=== PATIENT | female | born 1975 | race Caucasian/White ===

== ENCOUNTER 2021-01-12 14:23 | Emergency (ER) | payer BC, SELFPAY ==
--- NOTE | ~2021-01-12 | XR_ITS ---
XR wrist LT 2V 01/12/2021 15:30 Indication: Left wrist pain after fall Procedure: 2 views left wrist Comparison: No prior studies Findings: There is a comminuted distal radial fracture with dorsal displacement and approximately 40 degrees dorsal angulation. There is soft tissue swelling. No foreign bodies. No other fractures are i dentified. Impression: 1: Comminuted distal radial metaphyseal fracture with dorsal displacement and angulation. Reviewed, dictated and finalized at location B. MANAGEMENT Impression: 1: Comminuted distal radial metaphyseal fracture with dorsal displacement and a ngulation.
--- NOTE | ~2021-01-12 | XR_ITS ---
XR sacrum coccyx min 2V 01/12/2021 15:30 Indication: Status post fall. Sacral pain. Procedure: 3 views of the sacrum/coccyx Comparison: No prior studies for comparison. Findings: No fracture or traumatic malalignment. Sacral foramen are symmetric. Surrounding osseous st ructures within normal limits. No significant soft tissue abnormality. 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 Impression: 1: No acute fracture. Reviewed, dictated and finalized at location B. [employer] Impression: 1: No acute fracture.
--- NOTE | ~2021-01-12 | XR_ITS ---
EXAMINATION: XR wrist LT 2V INDICATION: Left distal radius fracture post reduction TECHNIQUE: Two views of the left wrist are obtained. COMPARISON: 1511 hours FINDINGS: Again seen is a comminuted transverse fracture of the distal radius. There are approximatel y 3 mm of lateral displacement of the largest distal fracture fragment. There are 15 degrees of dorsa l angulation at the fracture site. Soft tissue swelling surrounds the fracture a splint has been appl ied. No additional acute osseous findings are evident. IMPRESSION: 1. Partially reduced and splinted comminuted fracture of the distal radius. Reviewed, dictated and finalized at location A. SCHOOL ASSISTANT FOOTBALL COACH
[2021-01-12 14:43] VITALS: BP 87/53; PULSE 92; RESP 16; TEMP 36.2; O2SAT 100
--- NOTE | 2021-01-12 15:49 | ED.GENADULT ---
HPI - General Adult General Chief complaint: Fall <Mark Mora PA-C - Last Filed: 01/12/21 17:18> Stated complaint: fall/ribs/tailbone <Mark Mora PA-C - Last Filed: 01/12/21 17:18> Time Seen by Provider: 01/12/21 15:04 <Mark Mora PA-C - Last Filed: 01/12/21 17:18> Source: patient <Mark Mora PA-C - Last Filed: 01/12/21 17:18> Mode of arrival: ambulatory <Mark Mora PA-C - Last Filed: 01/12/21 17:18> Limitations: no limitations <Mark Mora PA-C - Last Filed: 01/12/21 17:18> History of Present Illness HPI narrative: Patient is a 45-year-old female who presents to emergency department for evaluation of wrist deformity injury that occurred just prior to arrival after slipping on the stairs patient presents with moderate aching pain to the left wrist with obvious deformity patient fell on an outstretched wrist patient also notes mild pain to the sacrum. Patient took ibuprofen but has not had anything else for symptoms denies head injury syncope loss of consciousness or other complaints. <Mark Mora PA-C - Last Filed: 01/12/21 17:18> Related Data Home medications: Home Medications Medication Instructions Recorded Confirmed No Home Medications 01/12/21 01/12/21 <Mark Mora PA-C - Last Filed: 01/12/21 17:18> Allergies/adverse reactions: Allergies Allergy/AdvReac Type Severity Reaction Status Date / Time No Known Allergies Allergy Verified 01/12/21 14:55 <Mark Mora PA-C - Last Filed: 01/12/21 17:18> Review of Systems Review of Systems: All systems reviewed & are unremarkable except as noted in HPI and below <Mark Mora PA-C - Last Filed: 01/12/21 17:18> [facility] Social History Social History: Social History (Updated 01/12/21 @ 15:50 by Mark Mora PA-C) Smoking status: Never smoker Gender identity (if verbalized by the patient): Female <Mark Mora PA-C - Last Filed: 01/12/21 17:18> Exam Narrative: Exam Narrative: GENERAL: Well-appearing, well-nourished, and in no acute distress. HEAD: Normocephalic, atraumatic. EYES: PERRLA and EOMI. ENT: Nares clear, no rhinorrhea or epistaxis. Mucous membranes moist. NECK: Supple. No adenopathy or masses. CHEST: Clear to auscultation. No respiratory distress. No wheezes rales or rhonchi HEART: Regular rate and rhythm. No murmur heard. Normal peripheral pulses. EXTREMITIES: Deformity and swelling and tenderness of the left wrist joint. Tenderness over the sacrum no cervical thoracic or lumbar tenderness. SKIN: Warm, dry, no rash. NEURO: No focal deficits. Alert and oriented x3. Neurovascularly intact. Capillary refill less than 2 seconds PSYCH: Normal mood and affect. <Mark Mora PA-C - Last Filed: 01/12/21 17:18> Course Course Emergency Course: Patient is a 45-year-old female who presented with wrist fracture which was reduced in the emergency department will be set up with orthopedic surgery patient hemodynamically stable no distress resting comfortably in the room <JOHN Wright Last Filed: 01/12/21 17:18> Consultations Consultation #1: Discussed case with orthopedist Dr. Suazo who will follow patient in clinic next week no prior <JOHN Wright Last Filed: 01/12/21 17:18> Date: 01/12/21 <JOHN Wright Last Filed: 01/12/21 17:18> Time: 17:17 <JOHN Wright Last Filed: 01/12/21 17:18> Vital Signs Vital signs: Vital Signs Temperature 97.2 F L 01/12/21 14:43 Pulse Rate 92 01/12/21 14:43 Respiratory Rate 16 01/12/21 14:43 Blood Pressure 87/53 L 01/12/21 14:43 Pulse Oximetry 100 01/12/21 14:43 Temperature 97.2 F L 01/12/21 14:43 Pulse Rate 92 01/12/21 14:43 Respiratory Rate 16 01/12/21 14:43 Blood Pressure 87/53 L 01/12/21 14:43 Pulse Oximetry 100 02/11/21 14:43 <Mark Mora PA-C - Last Filed:
[2021-01-12] MEDS: ONDANSETRON INJ 4 MG/2 ML VIAL IV PUSH (16:45)
[2021-01-12] MEDS: MORPHINE SULFATE (*CRX) 4 MG/ML INJ IV PUSH (16:45)
[2021-01-12] MEDS: HYDROmorphone HCL INJ (*CRX) 1 MG/ML SYR IV PUSH (16:45)
[2021-01-12 17:55] VITALS: BP 144/90; PULSE 84; RESP 17; O2SAT 97
== END 2021-01-12 17:56 | disposition home or self-care (01) ==
PROVIDERS: Emergency Provider Emergency Medicine; PCP Family Medicine
DX: S59.292A Other physeal fracture of lower end of radius, left arm, initial encounter for closed fracture (principal); S39.92XA Unspecified injury of lower back, initial encounter; W10.9XXA Fall (on) (from) unspecified stairs and steps, initial encounter
CPT/HCPCS: 25605; 72220; 73100; 96374; 96375; 99285; A4565; J1170; J2270; J2405

== ENCOUNTER → 2021-01-17 11:06 | Outpatient (CLI) | payer BC, SELFPAY ==
[2021-01-17 21:19] LABS: SARS-CoV-2 RNA PCR Positive
== END ==
PROVIDERS: PCP Family Medicine; Visit Provider Orthopaedic Surgery
DX: U07.1 COVID-19 (principal)
CPT/HCPCS: C9803; U0003; U0005

== ENCOUNTER 2021-01-19 01:17 | Day surgery (SDC) | payer BC, SELFPAY ==
[2021-01-17 12:43] VITALS: BMI 28.3
--- NOTE | 2021-01-18 09:15 | WPDANESEPPF ---
Anes - Initial Pre Proc Eval Procedure: Operation Date: 01/19/21 12:00 Proposed Procedures p Open Reduction Internal Fixation Left Distal Radius - Layo Suazo MD <Shadi Rios DO - Last Filed: 01/18/21 09:16> Date/Time: 01/18/21 09:15 <Shadi Rios DO - Last Filed: 01/18/21 09:16> Surgeon: Layo Suazo MD <Shadi Rios, DO - Last Filed: 01/18/21 09:16> Pre Op Diagnosis: left distal radius fx <Shadi Rios DO - Last Filed: 01/18/21 09:16> Patient Data Age: 45 Gender: F Height: 1.63 m Weight: 75 kg <Shadi Rios DO - Last Filed: 01/18/21 09:16> Allergies Allergy/AdvReac Type Severity Reaction Status Date / Time No Known Allergies Allergy Verified 01/19/21 10:34 <Shadi Rios DO - Last Filed: 01/18/21 09:16> Home Medications Medication Instructions Recorded Confirmed Type hydrocodone-acetaminophen 1 tablet PO Q6H PRN 3 Days #12 01/12/21 01/19/21 Rx tablet acetaminophen 650 mg 650 mg PO Q12H 01/17/21 01/19/21 History tablet,extended release ibuprofen 200 mg capsule 200 mg PO Q6H PRN 01/17/21 01/19/21 History <Shadi Rios DO - Last Filed: 01/18/21 09:16> Patient hx anesthesia problems: none <Dg Alberto MD - Last Filed: 01/19/21 10:58> Family hx anesthesia problems: none <Dg Alberto MD - Last Filed: 01/19/21 10:58> [facility] Past Medical History Medical History: Medical History Headache Overweight Smoker <Shadi Rios DO - Last Filed: 01/18/21 09:16> Surgical History Surgical History: Surgical History (Updated 01/19/21 @ 10:58 by Dg Alberto MD) History of reversal of tubal ligation History of tubal ligation <Shadi Rios DO - Last Filed: 01/18/21 09:16> Family History Family History: Family History Other Asthma Cerebrovascular accident Depression Diabetes mellitus <Shadi Rios DO - Last Filed: 01/18/21 09:16> Social History Social History: Social History Smoking status: Current every day smoker ( Vapes) Tobacco type: cigarettes and e-cigarettes/vaping Second hand tobacco smoke exposure: Yes Additional smoking assessment comments: STATES HX CIGARETTS 1PK/DAY/10YRS NOW JUST USES E-CIGARETTS/VAPING Alcohol intake: never Substance use: never Substance use type: does not use Living arrangements: with family Additional living arrangements comments: LIVES WITH 3 CHILDREN Additional occupation/education comments: [employer] Gender identity (if verbalized by the patient): Female Spiritual care concerns: No <Shadi Rios DO - Last Filed: 01/18/21 09:16> Anes - Eval Final PreProcedure Day of Procedure 01/18/21 09:15 <Shadi Rios DO - Last Filed: 01/18/21 09:16> Patient weight: overweight <Shadi Rios DO - Last Filed: 01/18/21 09:16> overweight <Dg Alberto MD - Last Filed: 01/19/21 10:58> Heart: regular rate and rhythm <Shadi Rios DO - Last Filed: 01/18/21 09:16> regular rate and rhythm <Dg Alberto MD - Last Filed: 01/19/21 10:58> Lungs: clear to auscultation and normal air movement <Shadi Rios DO - Last Filed: 01/18/21 09:16> clear to auscultation <Dg Alberto MD - Last Filed: 01/19/21 10:58> Airway: Mallampati scale class II <Shadi Rios DO - Last Filed: 01/18/21 09:16> Mallampati scale class II <Dg Alberto MD - Last Filed: 01/19/21 10:58> Neurological: alert and oriented <Shadi Rios DO - Last Filed: 01/18/21 09:16> alert and oriented <Dg Alberto MD - Last Filed: 01/19/21 10:58> Last oral intake: >/= 8 hours <Shadi Rios DO - Last Filed: 01/18/21 09:16>
--- NOTE | 2021-01-18 09:17 | WPDANESPNB ---
Anes - Peripheral Nerve Block Date/Time: 01/18/21 09:17 <Shadi Rios DO - Last Filed: 01/18/21 09:18> I have discussed with the patient/family/POA the placement of a peripheral nerve block for post-operative pain management, including associated risks, benefits, complications, and side effects. Alternative methods of post-operative analgesia were detailed. Questions were solicited and answers provided to the satisfaction of the patient/family/POA. <Shadi Rios DO - Last Filed: 01/18/21 09:18> Time-Out: A pre-procedural Time-Out was completed immediately before starting the procedure and confirmed: Patient Identification, Site, Procedure, Patient Position and the Availability of Requisite Equipment. <Shadi Rios DO - Last Filed: 01/18/21 09:18> Clinical Indications: Acute post-operative pain management requested by the operative surgeon. <Shadi Rios - Last Filed: 01/18/21 09:18> Nerve Block Insertion Note Anes-nerve block: supraclavicular left <Shadi Rios - Last Filed: 01/18/21 09:18> Patient position: supine <Shadi Rios DO - Last Filed: 01/18/21 09:18> Skin prep: chlorhexidine <Shadi Rios DO - Last Filed: 01/18/21 09:18> Needle: 22 gauge, stimulating, insulated echogenic needle. <Shadi Rios DO - Last Filed: 01/18/21 09:18> Needle length: 50 mm <Shadi Rios DO - Last Filed: 01/18/21 09:18> Technique: ultrasound <Shadi Rios DO - Last Filed: 01/18/21 09:18> Injectate: bupivacaine 0.5% with epi 5 mcg/ml (30cc- no epi) <Shadi Rios DO - Last Filed: 01/18/21 09:18> Observations: tolerated well <Shadi Rios DO - Last Filed: 01/18/21 09:18> Complications: none <Shadi Rios, DO - Last Filed: 01/18/21 09:18>
[2021-01-19] VITALS (8 sets, daily range): BP systolic 117–129; BP diastolic 67–78; PULSE 67–82; RESP 14–18; TEMP 36.1–36.7; O2SAT 93–98; BMI 27.9
--- NOTE | ~2021-01-19 | XR_ITS ---
EXAMINATION: XR surgery orthopedic DATE: 01/19/2021 14:02 INDICATION: ORIF left wrist fracture TECHNIQUE: Frontal and lateral fluoroscopic images of the left wrist were obtained during procedure p erformed by Dr. Suazo. Radiologist was not present for the imaging or procedure. The amount of fluoros copy time used during this procedure was 0.5 minutes. COMPARISON: 01/12/2021 FINDINGS: Interval reduction to near anatomic alignment of the prior dorsal/radial displacement and angulation of a mildly comminuted extra articular fracture of the distal left radius. There is 1-2 cortical widt hs residual radial displacement. Fracture is fixed with a volar T plate and screws. No other fracture s identified. Normal alignment and joint spaces in the visualized left carpus. IMPRESSION: 1. Near-anatomic alignment post open reduction internal fixation of a comminuted extra articular dist al left radial fracture. Reviewed, dictated and finalized at location A. BACKER IMPRESSION: 1. Near-anatomic alignment post open reduction internal fixation of a comminute d extra articular distal left radial fracture.
[2021-01-19] MEDS: LACTATED RINGERS 1,000 ML 30 ML IV CONT ×2 (11:02→13:32)
[2021-01-19] MEDS: KETOROLAC 15 MG/ML VIAL (*BKC) IV PUSH (11:03)
[2021-01-19] MEDS: ACETAMINOPHEN 500 MG TABLET 1000 MG PO (11:03)
--- NOTE | 2021-01-19 11:42 | WPDHPUPDATE1 ---
History and Physical Update Update Date/Time: 01/19/21 11:42 History and Physical has been reviewed, including an updated exam of the patient. There are NO changes in the patient's condition. Risks, benefits, and alternatives have been discussed and questions answered. Patient agrees to proceed with procedure.
--- NOTE | 2021-01-19 11:46 | SUR.PREOP ---
1140; SPOKE TO DR SYLVESTER. NO SHAVE NEEDED TODAY. SPLINT LEFT ON.
[2021-01-19] MEDS: ceFAZolin 2 GM/D5W 50 ML 2 GM/50 ML BAG IVPB (12:00)
--- NOTE | 2021-01-19 14:11 | P.OP_ITS ---
Procedure Note - Detailed Date of procedure: 01/19/21 Pre-op diagnosis: left distal radius fx Post-op diagnosis: same Procedure performed: ORIF left distal radius fracture Description of procedure: The patient was identified and the proper side identified. In the preop holding area, the anesthesia team performed a left upper extremity block. she was taken back to the operating room, transferred to the or table positioning supine taking care to pad her torso and extremities. After general anesthetic induction and intubation, a nonsterile tourniquet was placed high on the left arm which was prepped and draped in the usual sterile fashion. The extremity was exsanguinated and tourniquet inflated to 250 mmHg remaining up for approximately 57 minutes. A volar longitudinal incision was made along the FCR tendon distally. The subcutaneous tissue was sharply dissected protecting neurovascular structures. The FCR tendon was released from its sheath and retracted ulnarly. This allowed for the deep fascia of the forearm to be divided longitudinally in line with the incision. Care was taken to protect the volar compartment structures as well as the radial nerve and radial vascular structures. The pronator quadratus was elevated off of the distal radius allowing for inspection of the fracture site. The fracture fragments were disimpacted and able to be realigned virtually anatomically with fluoroscopic assistance. They were secured in this position with a wide short left volar plate from the DVR set. The plate was applied with fluoroscopic visualization to avoid penetration of the joint and to ensure optimal hardware placement. Once the plate was secure the overall construct was assessed fluoroscopically on the AP and lateral views. The virtually anatomic reduction was held very nicely. The construct was stable. The wound was irrigated with a copious amount of sterile antibiotic solution. Skin edges were reapproximated with two 0 strata fix and tissue adhesive. Sterile dressing was applied. To urniquet was released. A well-padded short-arm volar wrist splint was fashioned. The procedure was well tolerated. There were no known intraoperative complications. Estimated blood loss was negligible. Anesthesia: GLMA and regional Surgeon: Layo Suazo MD Teleprinter Installer: Manju Parra Estimated blood loss (mL): 2 Tourniquet time (min): 57 Drains: No Packing: No Pathology: none sent Complications: No immediate complications Condition: stable Disposition: PACU
== END 2021-01-19 15:24 | disposition home or self-care (01) ==
PROVIDERS: PCP Family Medicine; Visit Provider Orthopaedic Surgery
PROC: (CPT 25575; principal; 2021-01-19 12:00)
DX: S52.552A Other extraarticular fracture of lower end of left radius, initial encounter for closed fracture (principal); G89.18 Other acute postprocedural pain; F17.290 Nicotine dependence, other tobacco product, uncomplicated; W01.0XXA Fall on same level from slipping, tripping and stumbling without subsequent striking against object, initial encounter
CPT/HCPCS: 25607; 64415; A9270; C1713; J0690; J1100; J1885; J2250; J2405; J2704; J3010; J7120

== ENCOUNTER 2021-04-19 10:00 | Outpatient (RCR) | payer BC, SELFPAY ==
--- NOTE | 2021-02-22 11:36 | OTOPEVAL ---
OCCUPATIONAL THERAPY INITIAL EVALUATION REPORT 02/22/21 Natalie has been instructed in active ROM exercise for the forearm, wrist, and hand. She demonstrates good understanding. Plan to only see patient 1x/week for 4 weeks initially, then progress to increased frequency when cleared for passive ROM and resistive strengthening. Thank you for referring Natalie Prasad to [facility].? The patient is scheduled to be seen for therapy? 1x/week for 4 weeks. Please review, sign, date and return this plan of care JINNY. I agree with and certify that the following plan of care is medically necessary. Referring Physician Date Referring Provider: Layo Suazo MD *OT Outpatient Evaluation Therapy Assessment Status Assessment Status Assessment Status Evaluation Outpatient Past Medical History Past Medical History Source of Past Medical History Recalled from Previous Visit, Confirmed with Patient/Family Neurological History Hx Neurological Disorders No Significant History Cardiovascular History Hx Cardiac Disorders No Significant History Respiratory History Hx Respiratory Disorders No Significant History Gastrointestinal History Hx Gastrointestinal Disorders No Significant History Genitourinary History Hx Genitourinary Disorders No Significant History Musculoskeletal History Hx Fractures Yes: CURRENTLY LT WRIST Hematological History Hx Hematological Disorders No Significant History Endocrine History Hx Endocrine Disorders No Significant History HEENT History Hx Other HEENT Disorders Yes: GLASSES @ NOC Integumentary History Hx Skin Disorders No Significant History Reproductive History Hx Tubal Ligation Yes: 2004 & REVERSAL 2014 Hx Other Reproductive Disorders Yes: LMP 01/09/21 Psychosocial History Hx Psychiatric Disorders No Significant History Pain History Has Past Pain Affected Your Daily Life Yes: FX LT WRIST Anesthesia History Hx Anesthesia Reactions No Significant History Other History Hx Other Medical Conditions Yes: STATES HAD COVID IN DECEMBER 2020 - [place], LOSS OF TASTE & SMELL Evaluation Information Problem Diagnosis Left distal radius fracture Additional Evaluation Detail ORIF 01/19/21 Subjective Information Patient fell and broke her Query Text:As Reported By Patient/ left wrist and underwent an Family ORIF ~5 weeks ago. She presents today wearing a prefabricated wrist cock up brace that she wears the brace when sleeping, driving, and doing housework. She removes the splint when she's at home and resting. Prior Level of Function Activity Level (Last 3 Months) Occupation [employer]
--- NOTE | 2021-02-28 10:26 | PCOTNOTE ---
Patient did not show up for scheduled appointment this date. Called patient and was unable to leave a message as her voicemail box was not set up.
--- NOTE | 2021-03-22 09:43 | OTOPEVAL ---
OCCUPATIONAL THERAPY RE-EVALUATION REPORT Thank you for referring Natalie Prasad to [facility].? The patient is scheduled to be seen for continued therapy? 1x/week for 4 weeks. Please review, sign, date and return this plan of care JINNY. I agree with and certify that the following plan of care is medically necessary. Referring Physician Date Referring Provider: Layo Suazo MD *OT Outpatient Evaluation Start: 02/22/21 10:36 Evaluation Information Problem Diagnosis Left distal radius fracture Additional Evaluation Detail ORIF 01/19/21 Patient has attended 3 OT sessions since 02/22/21. Subjective Information Patient states she has noticed Query Text:As Reported By Patient/ improved mobility and Family strength of the left wrist since start of care. 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 She reports residual weakness that limits her functional return to heavier lifting and returning to work. Pain Assessment Timing of Pain Assessment Timing of Pain Assessment Re-assessment Pain Scale Pain Scale Used Numeric (1 - 10) Self Report Pain Assessment Left Wrist(s) Reported Pain Level 0 Lowest Pain Intensity 0 Greatest Pain Intensity 0 Pain Score Pain Score 0: Self Report Additional Pain Score Comments No pain, just stiffness per patient report. Upper Extremity Range of Motion Elbow/Forearm Range of Motion Left Forearm Supination - Active 80 Forearm Pronation - Active 80 Elbow/Forearm Range of Motion Comments Elbow flexion/extension are WNL. Forearm rotation is symmetrical to right UE. Improved from 40* supination and 70* pronation. Wrist Range of Motion Left Wrist Flexion - Active 55 Wrist Extension - Active 55 Wrist Radial Deviation - Active 25 Wrist Ulnar Deviation - Active 33 Wrist Range of Motion Comments Active flexion improved from 50* Active extension improved from 30* Active RD improved from 20* Active UD improved from 20* Finger Range of Motion Left Reason Not Measured WNL/Left Thumb Range of Motion Left Reason Not Measured WNL/Left Hand Milk Pickup Driver/Pinch Strength Assessment Hand Right Milk Pickup Driver Strength (lbs)
--- NOTE | 2021-04-19 10:33 | OTOPEVAL ---
OCCUPATIONAL THERAPY RE-EVALUATION AND D/C SUMMARY 04/19/21 Patient presents today for final re-evaluation after 8 weeks of therapy. OT has focused on ROM and strengthening in prep for return to normal functional use of the left UE for ADLs, household tasks, and return to work. At this time the patient has improved to normal limits and is ready for discharge. No further skilled OT indicated. Thank you for referring Natalie Prasad to [facility]. Please review, sign, date and return this D/C Note JINNY. I agree with and certify that the following plan of care is medically necessary. Referring Physician Date Referring Provider: Layo Suazo MD *OT Outpatient Re-Evaluation Evaluation Information Problem Diagnosis Left distal radius fracture Additional Evaluation Detail ORIF 01/19/21 Patient has attended 7 OT sessions since 02/22/21. Subjective Information Patient states her wrist ROM Query Text:As Reported By Patient/ and strength are back to Family normal. She has no difficulties with lifting grocery bags or a laundry basket. Today she was able to lift 50# and carry 10 ft. without difficulty. Pain Assessment Timing of Pain Assessment Timing of Pain Assessment Re-assessment Self Report Self Report Pain Level 0 Pain Score Pain Score 0: Self Report Upper Extremity Range of Motion Elbow/Forearm Range of Motion Left Forearm Supination - Active 85 Forearm Pronation - Active 85 Elbow/Forearm Range of Motion Comments Elbow flexion/extension are WNL. Improved from 40* supination and 70* pronation. Wrist Range of Motion Left Wrist Flexion - Active 60 Wrist Extension - Active 55 Wrist Radial Deviation - Active 25 Wrist Ulnar Deviation - Active 35 Wrist Range of Motion Comments Active flexion improved from 50* Active extension improved from 30* Active RD improved from 20* Active UD improved from 20* Finger Range of Motion Left Reason Not Measured WNL/Left Thumb Range of Motion Left Reason Not Measured WNL/Left Upper Extremity Muscle Strength Testing Elbow/Forearm Bilateral Elbow Flexion Strength 5 Normal Elbow Extension Strength 5 Normal Forearm Pronation Strength 5 Normal Forearm Supination Strength 5 Normal Wrist Strength Bilateral Wrist Flexion Strength 5 Normal Wrist Extension Strength 5 Normal Hand Strategic Planner/Pinch Strength Assessment Hand Right Strategic Planner Strength (lbs) 73.33 Left Strategic Planner Strength (lbs)
== END 2021-04-19 11:12 | disposition home or self-care (01) ==
LOC: ANHOT 10:00
PROVIDERS: PCP Family Medicine; Visit Provider Orthopaedic Surgery
DX: Z47.89 Encounter for other orthopedic aftercare (principal); S52.552D Other extraarticular fracture of lower end of left radius, subsequent encounter for closed fracture with routine healing
CPT/HCPCS: 97018; 97110; 97165

== ENCOUNTER 2021-05-13 03:51 | Emergency (ER) | payer BC, SELFPAY ==
[2021-05-13 03:56] VITALS: BP 133/83; PULSE 78; RESP 18; TEMP 36.2; O2SAT 98
--- NOTE | 2021-05-13 04:15 | ED.GENADULT ---
HPI - General Adult General Chief complaint: Ear Stated complaint: Bilateral ear pain Time Seen by Provider: 05/13/21 03:59 History of Present Illness HPI narrative: Patient 46-year-old female who presents to the emergency department with chief complaint of bilateral ear pressure. Patient states that she has decreased hearing out of the left ear reports she has had pressure in her ears patient denies fever denies sore throat Related Data Home Medications Medication Instructions Recorded Confirmed acetaminophen 650 mg 650 mg PO Q12H 01/17/21 04/27/21 tablet,extended release ibuprofen 200 mg capsule 200 mg PO Q6H PRN 01/17/21 04/27/21 Allergies Allergy/AdvReac Type Severity Reaction Status Date / Time No Known Allergies Allergy Verified 05/13/21 04:02 Review of Systems Review of Systems: Narrative: A 10 system review of systems was completed on the patient and is negative except for what is stated in the HPI. Nursing and ancillary documentation was reviewed. PMFSH Past Medical History Medical History Headache Overweight Smoker Surgical History Surgical History Closed extra-articular fracture of distal end of left radius ORIF January 2020 History of reversal of tubal ligation History of tubal ligation Family History Family History Other Asthma Cerebrovascular accident Depression Diabetes mellitus Social History Social History Smoking status: Current every day smoker ( Vapor) Tobacco type: cigarettes and e-cigarettes/vaping Second hand tobacco smoke exposure: Yes Additional smoking assessment comments: STATES HX CIGARETTS 1PK/DAY/10YRS NOW JUST USES E-CIGARETTS/VAPING Alcohol intake: never Substance use: never Substance use type: does not use Additional living arrangements comments: LIVES WITH 3 CHILDREN Additional occupation/education comments: [employer] Gender identity (if verbalized by the patient): Female Spiritual care concerns: No Exam Narrative: Exam Narrative: GENERAL: Well-appearing, well-nourished, and in no acute distress. HEAD: Normocephalic, atraumatic. EYES: PERRLA and EOMI. ENT: Nares clear, no rhinorrhea or epistaxis. Mucous membranes moist. There is erythema of the left tympanic membrane that was initially a cerumen impaction NECK: Supple. CHEST: Clear to auscultation. No respiratory distress. HEART: Regular rate and rhythm. No murmur heard. Normal peripheral pulses. ABDOMEN: Soft, nontender, nondistended, normal active bowel sounds. EXTREMITIES: Normal range of motion. No edema. SKIN: Warm, dry, no rash. NEURO: No focal deficits. Alert and oriented x3. PSYCH: Normal mood and affect. Course Course Emergency Course: The left ear was irrigated and a cerumen plug was removed. The right ear was irrigated as well with a small amount of cerumen removed Vital Signs Vital signs: Vital Signs Temperature 36.2 C L 05/13/21 03:56 Pulse Rate 78 05/13/21 03:56 Respiratory Rate 18 05/13/21 03:56 Blood Pressure 133/83 05/13/21 03:56 Pulse Oximetry 98 05/13/21 03:56 Temperature 36.2 C L 05/13/21 03:56 Pulse Rate 78 05/13/21 03:56 Respiratory Rate 18 05/13/21 03:56 Blood Pressure 133/83 05/13/21 03:56 Pulse Oximetry 98 05/13/21 03:56 Medical Decision Making Vital Signs Vital Signs: Vital Signs Temperature 36.2 C L 05/13/21 03:56 Pulse Rate 78 05/13/21 03:56 Respiratory Rate 18 05/13/21 03:56 Blood Pressure 133/83 05/13/21 03:56 Pulse Oximetry 98 05/13/21 03:56 Temperature 36.2 C L 05/13/21 03:56 Pulse Rate 78 05/13/21 03:56 Respiratory Rate 18 05/13/21 03:56 Blood Pressure 133/83 05/13/21 03:56 Pulse Oximetry 98 05/13/21 03:56 Discharge Plan Discharge Clinical Impression: Tomasz
[2021-05-13] MEDS: AMOXICILLIN/CLAVULANATE K 875-125 MG TAB 1 TABLET PO (04:38)
[2021-05-13 04:53] VITALS: BP 127/89; PULSE 74; RESP 14; O2SAT 98
== END 2021-05-13 04:52 | disposition home or self-care (01) ==
PROVIDERS: Emergency Provider Emergency Medicine; PCP Family Medicine
DX: H66.93 Otitis media, unspecified, bilateral (principal); H61.23 Impacted cerumen, bilateral; F17.290 Nicotine dependence, other tobacco product, uncomplicated; E66.3 Overweight; Z68.29 Body mass index [BMI] 29.0-29.9, adult
CPT/HCPCS: 69209; 99283; A9270

== ENCOUNTER 2022-04-21 19:05 | Emergency (ER) | payer BC, SELFPAY ==
[2022-04-21 19:12] VITALS: BP 137/91; PULSE 80; RESP 16; TEMP 37.2; O2SAT 99
--- NOTE | 2022-04-21 19:12 | ED.EAR ---
HPI - Ear Problem General Chief complaint: Ear Stated complaint: ear pain Time Seen by Provider: 04/21/22 19:12 Source: patient, RN notes reviewed and old records reviewed Mode of arrival: ambulatory Limitations: no limitations History of Present Illness HPI Narrative: 47-year-old female presents to the [facility] with complaints of bilateral ear pain, right worse than left. Has had allergies for 2 days. Took 1 Zyrtec and states it was not helping. Denies any fevers, chest pain, abdominal pain. No nausea vomiting or diarrhea. Reports decreased hearing MD Complaint: ear pain Location: bilateral Related Data Home Medications Medication Instructions Recorded Confirmed No Home Medications 04/21/22 04/21/22 Allergies Allergy/AdvReac Type Severity Reaction Status Date / Time No Known Allergies Allergy Verified 05/13/21 04:02 Review of Systems Review of Systems: All systems reviewed & are unremarkable except as noted in HPI and below Constitutional: Constitutional: Reports no additional constitutional complaints, Denies chills and Denies fever(s) Eyes: Eyes: Reports no additional eye complaints ENT: Reports as per HPI, Denies change in voice, Denies dental pain, Denies vertigo, Denies dizziness and Denies throat swelling Comments: Ear pain bilateral with decreased hearing Cardiovascular: Cardiovascular: Reports no additional cardiovascular complaints, Denies chest pain and Denies dyspnea Respiratory: Respiratory: Reports no additional respiratory complaints, Denies cough and Denies dyspnea Gastrointestinal: Gastrointestinal: Reports no additional gastrointestinal complaints, Denies abdominal pain, Denies nausea and Denies vomiting Musculoskeletal: Musculoskeletal: Reports no additional musculoskeletal complaints Integumentary/Breasts: Skin/Breast: Reports system reviewed and no additional complaints, except as docu Neurologic: Reports system reviewed and no additional complaints, except as documented, Denies vertigo and Denies dizziness Psychiatric: Psychiatric: Reports no additional psychiatric complaints Allergic/Immunologic: Allergic/Immunologic: Reports no additional allergic/immunologic complaints and Denies throat swelling PMFSH Past Medical History Medical History Headache Overweight Smoker Surgical History Surgical History Closed extra-articular fracture of distal end of left radius ORIF January 2020 History of reversal of tubal ligation History of tubal ligation Family History Family History Other Asthma Cerebrovascular accident Depression Diabetes mellitus Social History Social History Smoking status: Current every day smoker ( Vapor) Tobacco type: cigarettes and e-cigarettes/vaping Second hand tobacco smoke exposure: Yes Additional smoking assessment comments: STATES HX CIGARETTS 1PK/DAY/10YRS NOW JUST USES E-CIGARETTS/VAPING Alcohol intake: never Substance use: never Substance use type: does not use Additional living arrangements comments: LIVES WITH 3 CHILDREN Additional occupation/education comments: [employer] Gender identity (if verbalized by the patient): Female Spiritual care concerns: No Comments At the time of my signature, I reviewed and agree with the nursing past medical, surgical, social, and family history. There is no relevant family history pertinent to the patient complaint. Exam Const: General: healthy appearing, no acute distress and alert Nutritional Appearance: well nourished and obese Orientation/consciousness: patient oriented x3 Limitations: no limitations HENMT: Head: normal to inspection Ears: external ears normal, Abnormal EAC present excessive cerumen bilateral and TM abnormal with fluid behind the TM bilateral; not erythematous General nose exam: No
== END 2022-04-21 19:23 | disposition home or self-care (01) ==
PROVIDERS: Emergency Provider Nurse Practitioner
DX: H65.03 Acute serous otitis media, bilateral (principal); H61.23 Impacted cerumen, bilateral; F17.290 Nicotine dependence, other tobacco product, uncomplicated
CPT/HCPCS: 69210; 99212; G0463

== ENCOUNTER 2022-07-16 17:18 | Inpatient (IN) | payer BC, SELFPAY ==
[2022-07-16] VITALS (21 sets, daily range): BP systolic 111–149; BP diastolic 71–95; PULSE 50–70; RESP 16–18; TEMP 36.3–36.4; O2SAT 96–100; BMI 30.1
--- NOTE | ~2022-07-16 | XR_ITS ---
EXAMINATION: XR ERCP DATE: 07/18/2022 12:01 INDICATION: Gallstones TECHNIQUE: A single spot fluoroscopic image of the right upper quadrant were obtained during endoscop ic retrograde cholangiopancreatography (ERCP) performed by Dr. Matti Rojas. Radiologist was not p resent for the imaging or procedure. The amount of fluoroscopy time used during this procedure was 1. 4 minutes. COMPARISON: None. FINDINGS/IMPRESSION: Single unremarkable fluoroscopic image of the right upper quadrant. Please refer to the ERCP procedur e note for additional details. Reviewed, dictated and finalized at location A.
--- NOTE | ~2022-07-16 | MR_ITS ---
EXAMINATION: MR MRCP wo/w con/w 3D wo ind DATE: 07/17/2022 12:58 INDICATION: Biliary dilatation TECHNIQUE: Magnetic resonance imaging (MRI) of the abdomen was performed without and with intravenous contrast. Sequences included coronal T2-weighted SS-FSE ARC, coronal T2-weighted FS SS-FSE, coronal T2-weighted 2D FS FIESTA, Water:Coronal LAVA-Flex, sagittal T2-weighted SS-FSE ARC, axial SSFSE ARC, axial 3D DualEcho, axial DWI B=600, axial T1-weighted LAVA, FAT:Coronal LAVA-Flex, and coronal in and opposed phase LAVA-Flex. Thick-slab T2-weighted FRFSE-XL images were obtained for magnetic resonance cholangiopancreatography (MRCP). Maximum intensity projection 3-D reconstructions of the volumetric data were created by the technologist. Postcontrast sequences included a time course of axial T1-weig hted LAVA, FAT:Coronal LAVA-Flex, coronal in and opposed phase LAVA-Flex, and Water:Coronal LAVA-Flex . COMPARISON: CT from yesterday CONTRAST: Multihance, 15 cc FINDINGS: ABDOMEN MRI: The liver, spleen, pancreas, adrenal glands, and kidneys are normal. The gallbladder is distended and contains multiple stones. No definite gallbladder wall thickening or pericholecystic fl uid are identified. There are no pathologically enlarged abdominal lymph nodes. There are no dilated loops of bowel. No abnormal enhancement is present after contrast administration. ABDOMEN MRCP: The MRCP sequences slightly limited by motion artifact. The mildly dilated common bile duct measures up to 7 mm. There appears to be a 2 mm stone in the distal common bile duct. The pancre atic duct is normal in course and caliber. IMPRESSION: 1. 2 mm stone of the distal common bile duct with mild dilation common bile duct. 2. Distended gallbladder containing multiple stones. Reviewed, dictated and finalized at location A. IMPRESSION: 1. 2 mm stone of the distal common bile duct with mild dilation common bile lavern t. 2. Distended gallbladder containing multiple stones.
--- NOTE | ~2022-07-16 | CT_ITS ---
EXAMINATION: CT abdomen pelvis w con DATE: 07/16/2022 20:05 INDICATION: Right upper quadrant abdominal pain. Epigastric abdominal pain. Transaminitis. TECHNIQUE: Computed tomography (CT) of the abdomen and pelvis was performed with 100 mL Omnipaque 350 intravenous contrast. Automated exposure control and iterative reconstruction technique were employe d. The dose-length product was 590.01 mGy-cm. COMPARISON: None. FINDINGS: The visualized portions of the lung bases demonstrate mild atelectasis. There is a trace ri ght pleural effusion. The heart size is normal. No pericardial effusion. There is mild intrahepatic b iliary duct dilatation. The common duct measures 7 mm. The gallbladder is distended and contains gall stones. The spleen, pancreas, adrenal glands, and kidneys are normal. There are no dilated loops of b owel. The appendix is normal. There are no pathologically enlarged lymph nodes. There is no free intr aperitoneal fluid. There is mild thoracolumbar spondylosis. IMPRESSION: 1. Mild intrahepatic and extrahepatic biliary duct dilatation. Consider MRCP. 2. Distended gallbladder with gallstones. Reviewed, dictated and finalized at location A.
[2022-07-16 18:00] LABS: Basophils Percent Auto 0.8 % (0.2-1.2); Eosinophils Absolute Auto 0.1 K/mm3 (0-0.3); Hematocrit 41.7 % (37.0-47.0); Immature Granulocyte Absolute 0.01 K/mm3 (0.00-0.031); Immature Granulocyte Percent A 0.2 % (0-0.5); Lymphocytes Percent Auto 20.5 % (18.3-44.2); Mean Corpuscular HGB Conc 33.6 g/dl (32-36); Mean Corpuscular Hemoglobin 28.5 pg (26-34); Mean Corpuscular Volume 84.9 fl (80-100); Mean Platelet Volume 9.3 fl (7.4-10.4); Monocytes Absolute Auto 0.4 K/mm3 (0.1-0.6); Monocytes Percent Auto 7.8 % (2.6-8.5); Neutrophils Absolute Auto 3.4 K/mm3 (1.3-6.7); Neutrophils Percent Auto 69.7 % (45.5-73.1); Platelet Count Result 350 k/mm3 (150-375); Red Blood Count 4.91 M/mm3 (4.2-5.4); Red Cell Distribution Width 13.3 % (11.5-14.5); White Blood Count 4.9 K/mm3 (4.5-10.0)
[2022-07-16 18:07] LABS: Appearance Urine Clear (Clear); Bilirubin Urine 3+ (Negative); Color Urine Yellow (Yellow); Glucose Urine UA Trace mg/dL (Negative); Ketones Urine 1+ mg/dL (Negative); Leukocyte Esterase Ur Negative LEU/UL (Negative); Nitrate Urine Negative (Negative); Protein Urine 1+ mg/dL (Negative); Urobilinogen Urine >=8.0 mg/dL (<2.0)
[2022-07-16 18:13] LABS: Albumin Level 4.7 g/dL (3.5-5.1); Alkaline Phosphatase 241 U/L (38-126); Anion Gap 10 mmol/L (8-16); Bilirubin,Total 3.7 mg/dL (0.2-1.3); Blood Urea Nitrogen 11 mg/dL (7-17); Calcium 9.2 mg/dL (8.4-10.2); Carbon Dioxide 26 mmol/L (22-30); Chloride 104 mmol/L (98-107); Estimated CRCL calculation 102 ml/min; Estimated Glomerular Filt Rate > 60; Glucose 117 mg/dL (65-110); Lipase 79 U/L (23-300); Sodium 140 mmol/L (137-145)
[2022-07-16 18:16] LABS: Mucus Urine Rare /lpf; Squamous Epithelial Cell Urine Few /hpf (Few); WBC Urine 0-3 /hpf
[2022-07-16 18:19] LABS: Add Urine Microscopic? YES; Blood Urine Trace-Intact (Negative)
[2022-07-16 18:37] LABS: Alanine Aminotransferase 953 U/L (6-35)
--- NOTE | 2022-07-16 19:13 | ED.ABDPAIN ---
HPI - Abdominal Pain General Chief Complaint: Abdominal Pain Stated Complaint: stomach and back pain, urine has changed colors Time Seen by Provider: 07/16/22 18:42 Source: patient Mode of arrival: ambulatory Limitations: no limitations History of Present Illness HPI narrative: Patient is a 47-year-old female who presents the ED with report of epigastric abdominal pain. Patient reports she ate [employer] on Saturday night and developed pain in her epigastric/right upper quadrant abdomen afterwards, accompanied with nausea and vomiting. Since then, she has had pain and nausea/vomiting after trying to eat anything. States pain radiates through to back. Has been able to keep down water. Denies any fever, diarrhea, constipation, dysuria, hematuria, CP, SOB. Related Data Home Medications Medication Instructions Recorded Confirmed No Home Medications 04/21/22 04/21/22 Allergies Allergy/AdvReac Type Severity Reaction Status Date / Time No Known Allergies Allergy Verified 07/16/22 20:03 Review of Systems Review of Systems: CONSTITUTIONAL: Denies fever, chills, or sweats. CARDIOVASCULAR: Denies chest pain. RESPIRATORY: Denies dyspnea. GASTROINTESTINAL: Reports epigastric/RUQ pain, N/V. Denies diarrhea, constipation, rectal bleeding. GENITOURINARY: Denies dysuria or hematuria. MUSCULOSKELETAL: Reports mid back pain. All systems reviewed & are unremarkable except as noted in HPI and below PMFSH Past Medical History Medical History Headache Overweight Smoker Surgical History Surgical History Closed extra-articular fracture of distal end of left radius ORIF January 2020 History of reversal of tubal ligation History of tubal ligation Family History Family History Other Asthma Cerebrovascular accident Depression Diabetes mellitus Social History Social History Smoking status: Current every day smoker ( Vapor) Tobacco type: cigarettes and e-cigarettes/vaping Second hand tobacco smoke exposure: Yes Additional smoking assessment comments: STATES HX CIGARETTS 1PK/DAY/10YRS NOW JUST USES E-CIGARETTS/VAPING Alcohol intake: never Substance use: never Substance use type: does not use Additional living arrangements comments: LIVES WITH 3 CHILDREN Additional occupation/education comments: [employer] Gender identity (if verbalized by the patient): Female Spiritual care concerns: No Exam Narrative: GENERAL: Well appearing, well-nourished, non-toxic, in no acute distress. HEAD: Normocephalic, atraumatic. NECK: Supple. No adenopathy, no masses. RESPIRATORY: Airway patent, respirations nonlabored. Clear to auscultation bilaterally, no rales, rhonchi, wheezing. CARDIOVASCULAR: Regular rate and rhythm without murmurs, rubs, or gallops. Peripheral pulses 2+ and equal bilaterally. ABDOMINAL: Soft, diffuse tenderness to palpation in epigastric region and right upper quadrant, nondistended, no hepatosplenomegaly. Normoactive BS. MUSCULOSKELETAL: Moves all extremities. Strength/ROM intact without gross deformities. No midline spinal tenderness. SKIN: Warm, dry, normal color. No rashes. NEURO: A&O X3. Speech clear. Cranial nerves II-XII grossly intact. Steady gait. No ataxic movements. PSYCHIATRIC: Appropriate mood and affect. Normal interaction. Course Consultations Consultation #1: Discussed case with Dr. Chino, accepted consult. MRCP in the morning. Requested general surgery consult. Date: 07/16/22 Consultation #2: Discussed with Dr. Bourne patient presentation and workup. Agrees with admission at this time. Date: 07/16/22 Time: 20:48 Consultation #3: Discussed case with Dr. Koenig, Gen Surg, accepted consult. Date: 07/16/22 Vital Signs Vital signs: Vital Signs Temperature 97.6 F 07/16/22 17:23 Pulse Rate 70 07/16/22
[2022-07-16] MEDS: SODIUM CHLORIDE 0.9% IV 1,000 ML 999 ML IV CONT (19:46)
[2022-07-16] MEDS: MORPHINE SULFATE (*CRX) 2 MG/ML INJ IV PUSH (19:50)
[2022-07-16] MEDS: ONDANSETRON INJ 4 MG/2 ML VIAL IV PUSH (19:50)
--- NOTE | 2022-07-16 20:00 | PC.NURSE ---
Patient off unit to CT.
--- NOTE | 2022-07-16 20:46 | PM.IMHP ---
H&P: HPI History of Present Illness Date/Time: 07/16/22 20:46 Chief Complaint: Nausea and vomiting Narrative: This is a 47-year-old female with known significant past medical history, tobacco dependence, currently vapes. Patient comes in today due to nausea vomiting abdominal pain dyspepsia for the last day or so started early in the morning the day before and continue all the through all the on day of presentation to emergency room. Patient has had some hot flashes but no fevers, no chills, no night sweats, has some discomfort in the epigastric area, denies any hematemesis, melena, no change in stool character, no weight loss. Preliminary workup was significant for CT of abdomen and pelvis with: 1. Mild intrahepatic and extrahepatic biliary duct dilatation. Consider MRCP. 2. Distended gallbladder with gallstones. comprehensive metabolic profile showed AST/ ALT/ alk-phos 717/953/2 71 respectively total bili 3.7 patient is being admitted for further evaluation management and treatment. Review of Systems Review of Systems: Nausea, vomiting, dyspepsia, bloating. Constitutional: Constitutional: Denies chills, Denies fatigue, Denies fever(s), Denies malaise, Denies night sweats and Denies weakness Eyes: Eyes: Denies change in vision ENT: Denies dysphagia, Denies vertigo, Denies dizziness and Denies odynophagia Cardiovascular: Cardiovascular: Denies chest pain, Denies syncope, Denies irregular heart rhythm, Denies lightheadedness, Denies palpitations and Denies dyspnea on exertion Respiratory: Respiratory: Denies chest congestion, Denies cough, Denies excessive phlegm production, Denies pain on inspiration and Denies dyspnea Gastrointestinal: Gastrointestinal: Denies abdominal pain, Denies melena, Denies change in stool character, Denies coffee ground emesis, Denies dysphagia, Reports dyspepsia, Denies heartburn, Denies diarrhea, Reports nausea and Reports vomiting Genitourinary: Genitourinary: Denies dysuria Musculoskeletal: Musculoskeletal: Denies back pain, Denies myalgias, Denies arthralgias and Denies muscle weakness Integumentary/Breasts: Skin/Breast: Denies rash Neurologic: Denies vertigo, Denies dizziness, Denies focal weakness and Denies Sensory deficit (Neuro) Psychiatric: Psychiatric: Reports no additional psychiatric complaints and Reports as per HPI Endocrine: Endocrine: Denies cold intolerance, Denies fatigue, Denies flushing, Denies heat intolerance, Denies polyphagia, Denies polydipsia and Denies palpitations Hematologic/Lymphatic: Hematologic/Lymphatic: Reports no additional hematologic/lymphatic complaints and Reports as per HPI Allergic/Immunologic: Allergic/Immunologic: Reports no additional allergic/immunologic complaints and Reports as per HPI PMFSH Past Medical History Medical History Headache Overweight Smoker Surgical History Surgical History Closed extra-articular fracture of distal end of left radius ORIF January 2020 History of reversal of tubal ligation History of tubal ligation Family History Family History Other Asthma Cerebrovascular accident Depression Diabetes mellitus Social History Social History Smoking status: Current every day smoker Tobacco type: e-cigarettes/vaping Second hand tobacco smoke exposure: No Additional smoking assessment comments: STATES HX CIGARETTS 1PK/DAY/10YRS NOW JUST USES E-CIGARETTS/VAPING Alcohol intake: never Substance use: never Substance use type: does not use Additional living arrangements comments: LIVES WITH 3 CHILDREN Additional occupation/education comments: [employer] Gender identity (if verbalized by the patient): Female Spiritual care concerns: No Meds Home Medications and Allergies Home Medications Medication Instructions Recorded Conf
[2022-07-16 22:39] LABS: SARS-CoV-2 RNA PCR Negative
--- NOTE | 2022-07-16 23:18 | ADMGEN ---
This patient, Natalie Prasad, was admitted to [facility] Surg Room 327-. Patient/family oriented to hospital policies and general routines including ID bracelet, bed and alarms, visiting hours, pain management, procedures, bathroom and other care routines, personal items, smoking policy, room service/diet, and visiting hours. Information on how to activate the Rapid Response Team has been discussed. Patient/Family are encouraged to report perceived risks to care and to ask questions if they do not understand what they are told or what they should do.
[2022-07-17 05:46] VITALS: BP 116/69; PULSE 79; RESP 18; TEMP 36.8; O2SAT 100
[2022-07-17] MEDS: SODIUM CHLORIDE 0.9% IV 1,000 ML 75 ML IV CONT (06:39)
[2022-07-17] MEDS: ACETAMINOPHEN 325 MG TABLET 650 MG PO (08:33)
[2022-07-17 08:52] LABS: Hematocrit 37.5 % (37.0-47.0); Hemoglobin 12.8 g/dL (12.0-15.0); Mean Corpuscular HGB Conc 34.1 g/dl (32-36); Mean Corpuscular Hemoglobin 29.2 pg (26-34); Mean Corpuscular Volume 85.4 fl (80-100); Mean Platelet Volume 9.2 fl (7.4-10.4); Platelet Count Result 306 k/mm3 (150-375); Red Blood Count 4.39 M/mm3 (4.2-5.4); Red Cell Distribution Width 13.4 % (11.5-14.5); White Blood Count 5.7 K/mm3 (4.5-10.0)
--- NOTE | 2022-07-17 09:06 | PM.CNGS ---
Assessment and Plan Assessment and plan (1) Gallstones: Code(s): K80.20 - Calculus of gallbladder without cholecystitis without obstruction Status: Acute Assessment and Plan: CT reviewed and discussed with the patient in detail. There is evidence of cholelithiasis with gallbladder distention, along with intra and extrahepatic biliary duct dilatation. LFTs are elevated with a total bilirubin of 3.7. Agree with getting an MRCP today to further evaluate for choledocholithiasis. GI has been consulted. I discussed treatment options with the patient, including the details of a laparoscopic cholecystectomy, possible open. Description of the procedure, risks, benefits, and expected recovery were discussed in detail. Will await MRCP results to decipher further plans regarding the cholecystectomy. Keep NPO for now and continue IV fluids, IV analgesics, and IV antiemetics. I also added labs for today. (2) Elevated LFTs: Code(s): R79.89 - Other specified abnormal findings of blood chemistry Status: Acute Assessment and Plan: Total bilirubin 3.7 on admission with findings of biliary ductal dilatation on CT. Could have a gallstone in the common duct or one may have passed. This could also be related to cholecystitis. Agree with GI consultation. Will await MRCP results. (3) Dilated bile duct: Code(s): K83.8 - Other specified diseases of biliary tract Status: Acute Assessment and Plan: Noted on CT. Plan for MRCP today to further evaluate. (4) Obesity (BMI 30-39.9): Code(s): E66.9 - Obesity, unspecified Status: Acute (5) Current every day nicotine vaping: Code(s): Z72.0 - Tobacco use Status: Acute Assessment and Plan: Encouraged cessation. Plan I have discussed the patient's case and plan of care with Dr. Koenig. History of Present Illness Consult details Consult date: 07/17/22 Reason for consult: gallstones (Cholelithiasis with intra and extrahepatic biliary ductal dilatation, elevated LFTs) Requesting physician: Kalyn Rawls PA-C Narrative: This is a 47-year-old woman who presented to the ER last night with epigastric abdominal pain. She had [employer] for dinner 3 nights ago. That night she developed epigastric abdominal pain that radiated to her mid back. Shortly after she had multiple episodes of NBNB vomiting. She reportedly felt better after vomiting, but still had some mild pain the following day. She slept most of the day and did not eat until dinnertime. At dinner, she ate roast, potatoes, greens, and corn bread. Shortly after eating, her abdominal pain and back pain worsened and she again began vomiting. She had multiple episodes of vomiting through the night and again into the morning. She also endorses dark orange urine over the past 2 days. Due to her persistent symptoms, she presented to the ER yesterday for evaluation. CT scan of the abdomen and pelvis showed mild intrahepatic and extrahepatic biliary duct dilatation, gallbladder distention, and cholelithiasis. Labs showed a normal white blood cell count, normal lipase, and elevated LFTs with a total bilirubin of 3.7. She was given morphine in the ER, which helped her pain. The patient was admitted and made NPO. MRCP is ordered for today. She reports her epigastric abdominal pain and mid back pain has gotten worse again this morning. She denies any nausea, but feels full even though she has not eaten. No fever or chills. She denies ever having this pain in the past. Review of Systems Review of Systems: All systems reviewed & are unremarkable except as noted in HPI and below Constitutional: Constitutional: Reports as per HPI, Reports no additional constitutional complaints, Denies fatigue, Denies fever(s) and Reports poor appetite Eyes: Eyes: Reports no additional eye complaints ENT: Reports system reviewed and no additional complaints, except as documented and Reports Normal hearing pres
[2022-07-17 09:09] LABS: Alanine Aminotransferase 700 U/L (6-35); Albumin Level 4.1 g/dL (3.5-5.1); Alkaline Phosphatase 209 U/L (38-126); Anion Gap 8 mmol/L (8-16); Aspartate Amino Transferase 308 U/L (14-36); Bilirubin,Total 2.1 mg/dL (0.2-1.3); Blood Urea Nitrogen 6 mg/dL (7-17); Calcium 8.5 mg/dL (8.4-10.2); Carbon Dioxide 26 mmol/L (22-30); Chloride 106 mmol/L (98-107); Estimated CRCL calculation 105 ml/min; Estimated Glomerular Filt Rate > 60; Glucose 94 mg/dL (65-110); Potassium 3.4 mmol/L (3.4-5.0); Sodium 140 mmol/L (137-145)
[2022-07-17] MEDS: MORPHINE SULFATE (*CRX) 2 MG/ML INJ IV PUSH ×2 (13:18→21:03)
[2022-07-17 14:00] VITALS: BP 123/79; PULSE 60; RESP 20; TEMP 36; O2SAT 99
--- NOTE | 2022-07-17 14:17 | PM.IMPN ---
Progress Note: A&P Assessment and Plan (1) Gallstones: Code(s): K80.20 - Calculus of gallbladder without cholecystitis without obstruction Status: Acute (2) Elevated LFTs: Code(s): R79.89 - Other specified abnormal findings of blood chemistry Status: Acute (3) Current every day nicotine vaping: Code(s): Z72.0 - Tobacco use Status: Acute (4) Obesity (BMI 30-39.9): Code(s): E66.9 - Obesity, unspecified Status: Acute (5) Vaping-related disorder: Code(s): U07.0 - Vaping-related disorder Status: Acute (6) Abnormal LFTs: Code(s): R79.89 - Other specified abnormal findings of blood chemistry Status: Acute (7) Dilated bile duct: Code(s): K83.8 - Other specified diseases of biliary tract Status: Acute Plan 07/16/22 ?MRCP in a.m. ?supportive care ?GI consult ?general surgery consult ?likely secondary to cholestasis ?continue to monitor ?patient consult above a pain cessation 07/17/22 47 yo F admitted w RUQ pain and found to have cholelithiasis on CT imaging in ER MRCP 07/17/22 w choledocholithiasis/cholelithiasis (2 mm stone of the distal common bile duct and Distended gallbladder containing multiple stones) anticipate lap cholecystectomy after ERCP GI eval pending Surgeon Dr Liberty moss supportive care pain control PRN zofran PRN NS 100cc/hr Subjective Date/time seen: 07/17/22 14:17 pt doing ok no pain at present pt states that pain is present w eating and improved w vomiting Review of Systems Review of Systems: All systems reviewed & are unremarkable except as noted in HPI and below Exam Const: General: comfortable, no acute distress and awake Nutritional Appearance: overweight Orientation/consciousness: patient oriented x3 HENMT: Head: normocephalic and atraumatic Ears: hearing grossly normal bilaterally Mouth: Yes moist mucous membranes Eyes: General: appearance normal, both eyes and all related structures Sclera: sclerae normal EOM: EOMs intact bilaterally Neck: Neck: normal visual inspection and full ROM Resp: Effort & Inspection: no respiratory distress Auscultation: clear to auscultation bilaterally Cardio: Rate: regular rate Rhythm: regular rhythm Heart sounds: S1 normal heart sound present and S2 normal heart sound present GI: Inspection: normal to inspection, non-distended and scar (small infraumbilical scar) GI Palp: Yes Soft to palpation, No Tenderness to palpation present (GI), No Guarding due to palpation present (GI), Yes No hepatosplenomegaly present, No Hernia present and No Rebound tenderness present Percussion: Yes normal to percussion Auscultation: normal bowel sounds Rectal Exam: deferred Back/Spine/Pelvis: Back: no CVA tenderness Skin: General skin exam: normal color Rashes: no rashes Neuro: General: moves all extremities and no focal motor deficits Cranial nerves: Yes CN's II-XII intact bilaterally Speech: normal speech Motor exam (neuro): 5/5 motor strength present throughout Extrem: General: normal to inspection and no edema Psych: Mental Status: mental status grossly normal Affect: normal affect Attitude: cooperative Insight: Good insight present (Psych) Judgement: Good judgement present (Psych) Objective Data Vital Signs Vital Signs: Vital Signs - 24 hr 07/16/22 17:23 07/16/22 19:43 07/16/22 19:45 Temperature 97.6 F Pulse Rate 70 Respiratory Rate 18 Blood Pressure 125/95 H Pulse Oximetry 100 97 99 Oxygen Delivery Room Air 07/16/22 19:48 07/16/22 19:49 07/16/22 20:05 Temperature Pulse Rate Respiratory Rate Blood Pressure 134/93 H Pulse Oximetry 100 96 100 Oxygen Delivery 07/16/22 20:06 07/16/22 20:15 07/16/22 20:16 Temperature Pulse Rate Respiratory Rate Blood Pressure 133/91 H 124/71 Pulse Oximetry 98 100 99 Oxygen Delivery 07/16/22 20:17 07/16/22 20:30 07/16/22 20:31 Temperature Pulse Rate R
[2022-07-17] MEDS: SODIUM CHLORIDE 0.9% IV 1,000 ML 100 ML IV CONT (21:03)
[2022-07-17 21:59] VITALS: BP 133/75; PULSE 60; RESP 18; TEMP 35.9; O2SAT 100
[2022-07-18] VITALS (12 sets, daily range): BP systolic 128–150; BP diastolic 74–94; PULSE 52–74; RESP 13–21; TEMP 35.8–36.6; O2SAT 95–100
[2022-07-18] MEDS: MORPHINE SULFATE (*CRX) 2 MG/ML INJ IV PUSH ×2 (01:08→08:09)
[2022-07-18] MEDS: SODIUM CHLORIDE 0.9% IV 1,000 ML 100 ML IV CONT ×2 (05:31→13:23)
[2022-07-18 08:01] LABS: Basophils Absolute Auto 0.1 K/mm3 (0.0-0.1); Basophils Percent Auto 0.9 % (0.2-1.2); Eosinophils Absolute Auto 0.1 K/mm3 (0-0.3); Eosinophils Percent Auto 1.8 % (0-4.4); Hematocrit 41.4 % (37.0-47.0); Hemoglobin 13.8 g/dL (12.0-15.0); Immature Granulocyte Absolute 0.02 K/mm3 (0.00-0.031); Immature Granulocyte Percent A 0.4 % (0-0.5); Lymphocytes Percent Auto 31.2 % (18.3-44.2); Mean Corpuscular HGB Conc 33.3 g/dl (32-36); Mean Platelet Volume 9.1 fl (7.4-10.4); Monocytes Absolute Auto 0.5 K/mm3 (0.1-0.6); Monocytes Percent Auto 8.4 % (2.6-8.5); Neutrophils Absolute Auto 3.1 K/mm3 (1.3-6.7); Neutrophils Percent Auto 57.3 % (45.5-73.1); Platelet Count Result 313 k/mm3 (150-375); Red Blood Count 4.76 M/mm3 (4.2-5.4); Red Cell Distribution Width 13.3 % (11.5-14.5); White Blood Count 5.5 K/mm3 (4.5-10.0)
[2022-07-18] MEDS: ONDANSETRON INJ 4 MG/2 ML VIAL IV PUSH (08:09)
[2022-07-18 08:11] LABS: Anion Gap 6 mmol/L (8-16); Blood Urea Nitrogen 5 mg/dL (7-17); Calcium 9.1 mg/dL (8.4-10.2); Carbon Dioxide 27 mmol/L (22-30); Chloride 103 mmol/L (98-107); Estimated CRCL calculation 123 ml/min; Estimated Glomerular Filt Rate > 60; Glucose 90 mg/dL (65-110); Lipase 57 U/L (23-300); Potassium 3.6 mmol/L (3.4-5.0); Sodium 136 mmol/L (137-145)
[2022-07-18 08:25] LABS: Alanine Aminotransferase 554 U/L (6-35); Albumin Level 4.2 g/dL (3.5-5.1); Alkaline Phosphatase 211 U/L (38-126); Aspartate Amino Transferase 174 U/L (14-36); Bilirubin Direct 0.5 mg/dL (0-0.3); Bilirubin,Total 2.7 mg/dL (0.2-1.3)
--- NOTE | 2022-07-18 10:36 | WPDANESEPPF ---
Anes - Initial Pre Proc Eval Procedure: Operation Date: 07/18/22 12:00 Proposed Procedures p Endoscopic Retro Cholangiopancreatogram - Urbano Michel MD Date/Time: 07/18/22 10:36 Surgeon: Daniel Whalen MD Pre Op Diagnosis: Biliary Duct Dilation,Gallstones,Elevated LFT's Patient Data Age: 47 Gender: F Height: 1.64 m Weight: 80.8 kg Last Vital Signs Temp 97.8 F 07/18/22 04:57 Pulse 74 07/18/22 04:57 Resp 18 07/18/22 04:57 BP 128/82 07/18/22 04:57 Pulse Ox 96 07/18/22 04:57 O2 Del Method Room Air 07/18/22 08:00 Allergies Allergy/AdvReac Type Severity Reaction Status Date / Time No Known Allergies Allergy Verified 07/18/22 10:33 Home Medications Medication Instructions Recorded Confirmed Type No Home Medications 04/21/22 07/17/22 History Laboratory Tests 07/18/22 07/18/22 07/18/22 07:44 07:44 07:44 WBC 5.5 K/mm3 K/mm3 (4.5-10.0) RBC 4.76 M/mm3 M/mm3 (4.2-5.4) Hgb 13.8 g/dL g/dL (12.0-15.0) Hct 41.4 % % (37.0-47.0) MCV 87.0 fl fl (80-100) MCH 29.0 pg pg (26-34) MCHC 33.3 g/dl g/dl (32-36) RDW 13.3 % % (11.5-14.5) Plt Count 313 k/mm3 k/mm3 (150-375) MPV 9.1 fl fl (7.4-10.4) Immature Gran % (Auto) 0.4 % % (0-0.5) Neut % (Auto) 57.3 % % (45.5-73.1) Lymph % (Auto) 31.2 % % (18.3-44.2) [place] % (Auto) 8.4 % % (2.6-8.5) Eos % (Auto) 1.8 % % (0-4.4) Baso % (Auto) 0.9 % % (0.2-1.2) Lymph # (Auto) 1.70 K/mm3 K/mm3 (0.9-3.2) [place] # (Auto) 0.5 K/mm3 K/mm3 (0.1-0.6) Eos # (Auto) 0.1 K/mm3 K/mm3 (0-0.3) Baso # (Auto) 0.1 K/mm3 K/mm3 (0.0-0.1) Abs Immat Gran (auto) 0.02 K/mm3 K/mm3 (0.00-0.031) Absolute Neuts (auto) 3.1 K/mm3 K/mm3 (1.3-6.7) Absolute Nucleated RBC 0.0 K/mm3 K/mm3 (0.0-0.012) Nucleated RBC % 0.0 % % (0.0-0.2) Sodium 136 mmol/L L mmol/L (137-145) Potassium 3.6 mmol/L mmol/L (3.4-5.0) Chloride 103 mmol/L mmol/L (98-107) Carbon Dioxide 27 mmol/L mmol/L (22-30) Anion Gap 6 mmol/L L mmol/L (8-16) BUN 5 mg/dL L mg/dL (7-17) Creatinine 0.50 mg/dL L mg/dL (0.7-1.0) Estim Creat Clear Calc 123 ml/min ml/min Estimated GFR > 60 (59 - ) Glucose 90 mg/dL mg/dL (65-110) Calcium 9.1 mg/dL mg/dL (8.4-10.2) Total Bilirubin 2.7 mg/dL H mg/dL (0.2-1.3) Direct Bilirubin 0.5 mg/dL H mg/dL (0-0.3) AST 174 U/L H U/L (14-36) ALT 554 U/L H U/L (6-35) Alkaline Phosphatase 211 U/L H U/L (38-126) Total Protein 7.0 g/dL g/dL (6.3-8.2) Albumin 4.2 g/dL g/dL (3.5-5.1) Lipase 57 U/L U/L (23-300) Patient hx anesthesia problems: none Family hx anesthesia problems: none Results Review: All pre-operative results and documents have been reviewed as part of the pre-operative evaluation. [facility] Past Medical History Medical History Headache History of ectopic Overweight Smoker Surgical History Surgical History Closed extra-articular fracture of distal end of left radius ORIF January 2020 History of reversal of tubal ligation History of tubal ligation Family History Family History Other Asthma Cerebrovascular accident Depression Diabetes mellitus Social History Social History Smoking status: Current every day smoker Tobacco type: e-cigarettes/vaping Second hand tobacco smoke exposure: No Additional smoking assessment comments: STATES HX CIGARETTS 1PK/DAY/10YRS NOW JUST USES E-C
[2022-07-18] MEDS: LACTATED RINGERS 1,000 ML 150 ML IV CONT (10:48)
--- NOTE | 2022-07-18 11:12 | WPDGICN ---
Assessment and Plan Assessment and plan (1) Choledocholithiasis with acute cholecystitis: Code(s): K80.42 - Calculus of bile duct with acute cholecystitis without obstruction Status: Acute Assessment and Plan: will proceed with ERCP today, explained risk of pancreatitis. Denies previous similar episode surgery is already on the case (2) Elevated liver enzymes: Code(s): R74.8 - Abnormal levels of other serum enzymes Status: Acute Assessment and Plan: GB/biliary related ercp today continue supportive care (3) Dilated bile duct: Code(s): K83.8 - Other specified diseases of biliary tract Status: Acute (4) Nausea and vomiting in adult: Code(s): R11.2 - Nausea with vomiting, unspecified Status: Acute Assessment and Plan: antiemetics prn (5) Upper abdominal pain: Code(s): R10.10 - Upper abdominal pain, unspecified Status: Acute GI Consult Note Consult date/time: 07/18/22 11:12 Reason for consult: choledocholithiasis, upper abdominal pain HPI: Natalie Prasad is a 47 year old female with no major medical problem here with new onset of epigastric abdominal pain that radiated to her mid back after had a burger about 3 days ago, this was followed by nausea and vomiting, initially she thought that could have been food poison.?Abdominal pain actually worsened and finally came to ER. CT scan of the abdomen and pelvis showed mild intrahepatic and extrahepatic biliary duct dilatation, gallbladder distention, and cholelithiasis.? Labs showed a normal white blood cell count, normal lipase, and elevated LFTs 400-900's with a total bilirubin of 3.7. MRCP reviewed and showed 2 mm stone of the distal common bile duct with mild dilation common bile duct, distended gallbladder containing multiple stones. Review of Systems Review of Systems: All systems reviewed & are unremarkable except as noted in HPI and below Constitutional: Constitutional: Reports as per HPI, Reports no additional constitutional complaints, Denies fatigue, Denies fever(s) and Reports poor appetite Eyes: Eyes: Reports no additional eye complaints ENT: Reports system reviewed and no additional complaints, except as documented and Reports Normal hearing present Cardiovascular: Cardiovascular: Reports no additional cardiovascular complaints, Denies chest pain and Denies leg edema Respiratory: Respiratory: Reports no additional respiratory complaints, Denies cough and Denies dyspnea Gastrointestinal: Gastrointestinal: Reports as per HPI, Reports no additional gastrointestinal complaints, Reports abdominal pain (epigastric pain that radiates to the RUQ and mid back), Denies melena, Reports bloating, Denies hematochezia, Denies change in bowel habits, Denies coffee ground emesis, Denies constipation, Denies diarrhea, Reports nausea, Reports vomiting and Denies hematemesis Genitourinary: Genitourinary: Reports no additional female genitourinary complaints, Denies hematuria, Denies dysuria and Reports other (dark orange urine x 2 days) Musculoskeletal: Musculoskeletal: Reports no additional musculoskeletal complaints Integumentary/Breasts: Skin/Breast: Reports system reviewed and no additional complaints, except as docu and Denies jaundice Neurologic: Reports system reviewed and no additional complaints, except as documented, Denies dizziness, Denies focal weakness, Denies numbness and Denies tingling PMFSH Past Medical History Medical History (Updated 07/18/22 @ 11:17 by Urbano Michel MD) Choledocholithiasis with acute cholecystitis Elevated liver enzymes Headache History of ectopic Nausea and vomiting in adult Overweight Smoker Upper abdominal pain Surgical History Surgical History Closed extra-articular fracture of distal end of left radius ORIF January 2020 History of reversal of tubal ligation H
[2022-07-18] MEDS: INDOMETHACIN 50 MG SUPP.RECT RECTAL (11:51)
--- NOTE | 2022-07-18 12:24 | PM.PNGS ---
Progress Note: A&P Assessment and Plan (1) Choledocholithiasis with acute cholecystitis: Code(s): K80.42 - Calculus of bile duct with acute cholecystitis without obstruction Status: Acute Assessment and Plan: Will plan to proceed with Lap rm, poss open tomorrow. (2) Elevated liver enzymes: Code(s): R74.8 - Abnormal levels of other serum enzymes Status: Acute Subjective Subjective Date/Time Seen: 07/18/22 12:24 Interval history: Patient seen in GI recovery after ERCP this AM. Doing well. Just a little sleepy still. Exam GI: Inspection: non-distended GI Palp: Yes Soft to palpation, No Tenderness to palpation present (GI) and No Guarding due to palpation present (GI) Objective Data Vital Signs Vital Signs: Vital Signs - 24 hr 07/17/22 14:00 07/17/22 21:59 07/18/22 04:57 Temperature 36.0 C L 35.9 C L 36.6 C Pulse Rate 60 60 74 Respiratory Rate 20 18 18 Blood Pressure 123/79 133/75 128/82 Pulse Oximetry 99 100 96 Oxygen Delivery Oxygen Flow Rate 07/18/22 08:00 07/18/22 10:34 07/18/22 12:00 Temperature 36.2 C L 36.6 C Pulse Rate 63 61 Respiratory Rate 16 15 Blood Pressure 130/74 141/89 H Pulse Oximetry 97 100 Oxygen Delivery Room Air Room Air Simple Face Mask Oxygen Flow Rate 4 07/18/22 12:10 07/18/22 12:20 Temperature Pulse Rate 58 L 56 L Respiratory Rate 13 14 Blood Pressure 150/90 H 144/82 H Pulse Oximetry 99 99 Oxygen Delivery Room Air Room Air Oxygen Flow Rate Intake/Output Intake/Output: Intake & Output 07/15/22 07/16/22 07/17/22 07/18/22 23:59 23:59 23:59 23:59 Intake Total 1000 1480 1200 Output Total 1600 2000 Balance 1000 -120 -800 Meds/Results Medications: Active Medications Generic Name Dose Route Start Last Admin Trade Name Freq PRN Reason Stop Dose Admin Sodium Chloride 1,000 mls @ 100 mls/hr 07/17/22 05:10 07/18/22 05:31 Normal Saline Iv IV CONT 100 mls/hr .Q10H JUVENAL Administration Lactated Ringer's 1,000 mls @ 150 mls/hr 07/18/22 10:40 07/18/22 10:48 Lr - Lactated Ringers Iv IV CONT 150 mls/hr .Q6H40M JUVENAL Administration Indomethacin 50 mg 07/18/22 13:00 07/18/22 11:51 Indomethacin 50 Mg Supp.Rect RECTAL 07/18/22 13:01 50 mg ONCE ONE Administration Morphine Sulfate 2 mg 07/17/22 09:08 07/18/22 08:09 Morphine Sulfate (*Crx) 2 Mg/Ml Inj IV PUSH 2 mg Q2H PRN Administration Pain Rated 7-10 Ondansetron HCl 4 mg 07/16/22 20:48 07/18/22 08:09 Ondansetron Inj 4 Mg/2 Ml Vial IV PUSH 4 mg Q4H PRN Administration Nausea Radiology Results: ITS Impressions Abdomen/Pelvis CT 07/16/22 20:14 IMPRESSION: 1. Mild intrahepatic and extrahepatic biliary duct dilatation. Consider MRCP. 2. Distended gallbladder with gallstones. MRCP 07/17/22 13:19 IMPRESSION: 1. 2 mm stone of the distal common bile duct with mild dilation common bile duct. 2. Distended gallbladder containing multiple stones. Labs Labs: Laboratory Results - last 24 hr 07/18/22 07/18/22 07/18/22 07:44 07:44 07:44 WBC 5.5 RBC 4.76 Hgb 13.8 Hct 41.4 MCV 87.0 MCH 29.0 MCHC 33.3 RDW 13.3 Plt Count 313 MPV 9.1 Immature Gran % (Auto) 0.4 Neut % (Auto) 57.3 Lymph % (Auto) 31.2 [place] % (Auto) 8.4 Eos % (Auto) 1.8 Baso % (Auto) 0.9 Lymph # (Auto) 1.70 [place] # (Auto) 0.5 Eos # (Auto) 0.1 Baso # (Auto) 0.1 Abs Immat Gran (auto) 0.02 Absolute Neuts (auto) 3.1 Absolute Nucleated RBC 0.0 Nucleated RBC % 0.0 Sodium 136 L Potassium 3.6 Chloride 103 Carbon Dioxide 27 Anion Gap 6 L BUN 5 L Creatinine 0.50 L Estim Creat Clear Calc 123 Estimated GFR > 60 Glucose 90 Calcium 9.1 Total Bilirubin 2.7 H Direct Bilirubin 0.5 H AST 174 H ALT 554 H Alkaline Phosphatase 211 H Total Protein 7.0 Albumin 4.2 Lipase 57
--- NOTE | 2022-07-18 14:32 | PM.IMPN ---
Progress Note: A&P Assessment and Plan (1) Gallstones: Code(s): K80.20 - Calculus of gallbladder without cholecystitis without obstruction Status: Acute (2) Elevated LFTs: Code(s): R79.89 - Other specified abnormal findings of blood chemistry Status: Acute (3) Current every day nicotine vaping: Code(s): Z72.0 - Tobacco use Status: Acute (4) Obesity (BMI 30-39.9): Code(s): E66.9 - Obesity, unspecified Status: Acute (5) Vaping-related disorder: Code(s): U07.0 - Vaping-related disorder Status: Acute (6) Dilated bile duct: Code(s): K83.8 - Other specified diseases of biliary tract Status: Acute (7) Duodenitis: Code(s): K29.80 - Duodenitis without bleeding Status: Acute Plan Patient presents with abdominal pain and found to have elevated liver enzymes. Lipase was normal. CT scan showed biliary duct dilatation with distended gallbladder with gallstones. MRCP showed a 2 mm stone in the distal common bile duct. EGD with ERCP showed mild duodenitis which could explain some of her pain. ERCP did not find any filling defects. Patient may have passed a gallstone. General surgery has been consulted with plans for cholecystectomy. Continue monitor LFTs. Decrease IV fluid rate. Subjective Date/time seen: 07/18/22 14:32 Interval history: 47yo female here for abdominal pain and fund to have elevated LFTs from choledocholithiasis. Assuming care. Chart reviewed. Abdominal pain has almost but resolved. Some minor tenderness with palpation. She is having normal bowel movements. No chest pain or shortness of breath. No palpitations. No cough. No nausea or vomiting. Exam Narrative: AF 96.4 145/85 62 21 95% ra Gen - NARD Chest - CTA bilaterally, nml RR CV - RRR S1/S2 Abd -soft. Minimal epigastric pain. Nondistended. Positive bowel sounds. Ext - No pedal edema Neuro - Alert and oriented. Nonfocal exam. Psych - Nml mood and affect Skin - Warm and dry Objective Data Vital Signs Vital Signs: Vital Signs - 24 hr 07/17/22 21:59 07/18/22 04:57 07/18/22 08:00 Temperature 96.7 F L 97.8 F Pulse Rate 60 74 Respiratory Rate 18 18 Blood Pressure 133/75 128/82 Pulse Oximetry 100 96 Oxygen Delivery Room Air Oxygen Flow Rate 07/18/22 10:34 07/18/22 12:00 07/18/22 12:10 Temperature 97.2 F L 97.8 F Pulse Rate 63 61 58 L Respiratory Rate 16 15 13 Blood Pressure 130/74 141/89 H 150/90 H Pulse Oximetry 97 100 99 Oxygen Delivery Room Air Simple Face Mask Room Air Oxygen Flow Rate 4 07/18/22 12:20 07/18/22 12:30 07/18/22 12:40 Temperature Pulse Rate 56 L 59 L 58 L Respiratory Rate 14 17 17 Blood Pressure 144/82 H 144/83 H 143/77 H Pulse Oximetry 99 97 98 Oxygen Delivery Room Air Room Air Room Air Oxygen Flow Rate 07/18/22 12:50 07/18/22 13:00 07/18/22 14:00 Temperature 96.4 F L Pulse Rate 55 L 52 L 62 Respiratory Rate 19 21 H 21 H Blood Pressure 145/82 H 147/85 H 145/85 H Pulse Oximetry 99 99 95 Oxygen Delivery Room Air Room Air Oxygen Flow Rate Intake/Output Intake/Output: Intake & Output 07/15/22 07/16/22 07/17/22 07/18/22 23:59 23:59 23:59 23:59 Intake Total 1000 1480 2600 Output Total 1600 2600 Balance 1000 -120 0 Meds/Results Medications: Active Medications Generic Name Dose Route Start Last Admin Trade Name Freq PRN Reason Stop Dose Admin Sodium Chloride 1,000 mls @ 100 mls/hr 07/17/22 05:10 07/18/22 13:23 Normal Saline Iv IV CONT 100 mls/hr .Q10H JUVENAL Administration Morphine Sulfate 2 mg 07/17/22 09:08 07/18/22 08:09 Morphine Sulfate (*Crx) 2 Mg/Ml Inj IV PUSH 2 mg Q2H PRN Administration Pain Rated 7-10 Ondansetron HCl 4 mg 07/16/22 20:48 07/18/22 08:09 Ondansetron Inj 4 Mg/2 Ml Vial IV PUSH 4 mg Q4H PRN Administration Nausea Radiology Results: ITS Impressions Abdomen/Pelvis CT 07/16/22 2
[2022-07-19] VITALS (11 sets, daily range): BP systolic 128–153; BP diastolic 69–94; PULSE 54–75; RESP 12–24; TEMP 36.1–36.4; O2SAT 95–100
[2022-07-19] MEDS: SODIUM CHLORIDE 0.9% IV 1,000 ML 70 ML IV CONT ×2 (02:59→20:26)
[2022-07-19 07:20] LABS: Alanine Aminotransferase 458 U/L (6-35); Albumin Level 4.1 g/dL (3.5-5.1); Alkaline Phosphatase 202 U/L (38-126); Anion Gap 9 mmol/L (8-16); Aspartate Amino Transferase 129 U/L (14-36); Bilirubin,Total 1.1 mg/dL (0.2-1.3); Blood Urea Nitrogen 6 mg/dL (7-17); Calcium 8.7 mg/dL (8.4-10.2); Carbon Dioxide 25 mmol/L (22-30); Chloride 106 mmol/L (98-107); Estimated CRCL calculation 105 ml/min; Estimated Glomerular Filt Rate > 60; Glucose 97 mg/dL (65-110); Potassium 3.6 mmol/L (3.4-5.0); Sodium 140 mmol/L (137-145)
--- NOTE | 2022-07-19 08:55 | PM.IMPN ---
Progress Note: A&P Assessment and Plan (1) Gallstones: Code(s): K80.20 - Calculus of gallbladder without cholecystitis without obstruction Status: Acute (2) Elevated LFTs: Code(s): R79.89 - Other specified abnormal findings of blood chemistry Status: Acute (3) Duodenitis: Code(s): K29.80 - Duodenitis without bleeding Status: Acute (4) Current every day nicotine vaping: Code(s): Z72.0 - Tobacco use Status: Acute (5) Obesity (BMI 30-39.9): Code(s): E66.9 - Obesity, unspecified Status: Acute (6) Vaping-related disorder: Code(s): U07.0 - Vaping-related disorder Status: Acute (7) Dilated bile duct: Code(s): K83.8 - Other specified diseases of biliary tract Status: Acute Plan Patient presents with abdominal pain and found to have elevated liver enzymes. Lipase was normal. CT scan showed biliary duct dilatation with distended gallbladder with gallstones. MRCP showed a 2 mm stone in the distal common bile duct. EGD with ERCP showed mild duodenitis which could explain some of her pain. ERCP did not find any filling defects. Patient probably passed a gallstone. Liver enzymes trending down. General surgery was consulted with plans for cholecystectomy today. Subjective Date/time seen: 07/19/22 08:55 Interval history: 47yo female here for abdominal pain and fund to have elevated LFTs from choledocholithiasis. No CP or SOB. Slight pain with nausea after eating. No diarrhea. No abd pain this morning. Exam Narrative: AF 96.9 128/94 66 14 99% ra Gen - NARD Chest - CTA bilaterally, nml RR CV - RRR S1/S2 Abd -soft. Nontender. Nondistended. Positive bowel sounds. Ext - No pedal edema Neuro - Alert and oriented. Nonfocal exam. Psych - Nml mood and affect Skin - Warm and dry Objective Data Vital Signs Vital Signs: Vital Signs - 24 hr 07/18/22 10:34 07/18/22 12:00 07/18/22 12:10 Temperature 97.2 F L 97.8 F Pulse Rate 63 61 58 L Respiratory Rate 16 15 13 Blood Pressure 130/74 141/89 H 150/90 H Pulse Oximetry 97 100 99 Oxygen Delivery Room Air Simple Face Mask Room Air Oxygen Flow Rate 4 07/18/22 12:20 07/18/22 12:30 07/18/22 12:40 Temperature Pulse Rate 56 L 59 L 58 L Respiratory Rate 14 17 17 Blood Pressure 144/82 H 144/83 H 143/77 H Pulse Oximetry 99 97 98 Oxygen Delivery Room Air Room Air Room Air Oxygen Flow Rate 07/18/22 12:50 07/18/22 13:00 07/18/22 14:00 Temperature 96.4 F L Pulse Rate 55 L 52 L 62 Respiratory Rate 19 21 H 21 H Blood Pressure 145/82 H 147/85 H 145/85 H Pulse Oximetry 99 99 95 Oxygen Delivery Room Air Room Air Oxygen Flow Rate 07/18/22 20:00 07/18/22 22:00 07/19/22 06:00 Temperature 97.3 F L 96.9 F L Pulse Rate 62 63 66 Respiratory Rate 21 H 18 14 Blood Pressure 137/94 H 128/94 H Pulse Oximetry 95 97 99 Oxygen Delivery Room Air Oxygen Flow Rate 07/19/22 08:00 Temperature Pulse Rate Respiratory Rate Blood Pressure Pulse Oximetry Oxygen Delivery Room Air Oxygen Flow Rate Intake/Output Intake/Output: Intake & Output 07/16/22 07/17/22 07/18/22 07/19/22 23:59 23:59 23:59 23:59 Intake Total 1000 1480 3440 1240 Output Total 1600 3700 1800 Balance 1000 -120 -260 -560 Meds/Results Medications: Active Medications Generic Name Dose Route Start Last Admin Trade Name Freq PRN Reason Stop Dose Admin Sodium Chloride 1,000 mls @ 70 mls/hr 07/17/22 05:10 07/19/22 02:59 Normal Saline Iv IV CONT 70 mls/hr .[id number] JUVENAL Administration Ibuprofen 800 mg in 200 mls @ 400 mls/hr 07/18/22 20:06 Caldolor 800 Mg/200 Ml IVPB Q6H PRN Pain Rated 4-6 Morphine Sulfate 2 mg 07/17/22 09:08 07/18/22 08:09 Morphine Sulfate (*Crx) 2 Mg/Ml Inj IV PUSH 2 mg Q2H PRN Administration Pain Rated 7-10 Ondansetron HCl 4 mg 07/16/22 20:48 07/18/22 08:09 Ondansetron Inj 4 Mg/2 Ml Vial IV PUSH 4 mg Q4H P
--- NOTE | 2022-07-19 11:00 | WPDGIPROGNO ---
Progress Note: A&P Assessment and Plan (1) Choledocholithiasis with acute cholecystitis: Code(s): K80.42 - Calculus of bile duct with acute cholecystitis without obstruction Status: Acute Assessment and Plan: s/p ercp with sphincterotomy, did not find stones and had normal bile duct today for cholecystectomy doing well [place] (2) Elevated liver enzymes: Code(s): R74.8 - Abnormal levels of other serum enzymes Status: Acute (3) Upper abdominal pain: Code(s): R10.10 - Upper abdominal pain, unspecified Status: Acute Assessment and Plan: resolved diet per surgery Subjective Date/time seen: 07/19/22 11:00 Interval history: she is doing well after ercp, awaiting for her cholecystectomy Review of Systems Review of Systems: All systems reviewed & are unremarkable except as noted in HPI and below Exam Const: General: comfortable and no acute distress HENMT: General nose exam: Normal nares present Eyes: General: appearance normal, both eyes and all related structures Neck: Neck: no JVD Resp: Auscultation: clear to auscultation bilaterally Cardio: Rate: regular rate Rhythm: regular rhythm GI: Inspection: non-distended GI Palp: Yes Soft to palpation Skin: General skin exam: normal color Neuro: General: gait normal Speech: normal speech Extrem: General: normal to inspection Psych: Mental Status: mental status grossly normal Objective Data Vital Signs Vital Signs: Vital Signs - 24 hr 07/18/22 20:00 07/18/22 22:00 07/19/22 06:00 Temperature 97.3 F L 96.9 F L Pulse Rate 62 63 66 Respiratory Rate 21 H 18 14 Blood Pressure 137/94 H 128/94 H Pulse Oximetry 95 97 99 Oxygen Delivery Room Air Oxygen Flow Rate 07/19/22 08:00 07/19/22 14:51 07/19/22 15:05 Temperature Pulse Rate 75 55 L Respiratory Rate 24 H 18 Blood Pressure 136/69 146/77 H Pulse Oximetry 97 100 Oxygen Delivery Room Air Simple Face Mask Simple Face Mask Oxygen Flow Rate 6 6 07/19/22 15:20 07/19/22 15:35 Temperature Pulse Rate 56 L 60 Respiratory Rate 12 15 Blood Pressure 150/89 H 153/83 H Pulse Oximetry 100 99 Oxygen Delivery Room Air Room Air Oxygen Flow Rate Intake/Output Intake/Output: Intake & Output 07/16/22 07/17/22 07/18/22 07/19/22 23:59 23:59 23:59 23:59 Intake Total 1000 1480 3440 1240 Output Total 1600 3700 1800 Balance 0086 -269 -747 -295 Meds/Results Medications: Active Medications Generic Name Dose Route Start Last Admin Trade Name Freq PRN Reason Stop Dose Admin Fentanyl Citrate 25 mcg 07/19/22 14:57 07/19/22 15:12 Fentanyl Citrate Inj (*Crx) 100 Mcg/2 Ml Vial IV PUSH 25 mcg Q2M PRN Administration Pain Sodium Chloride 1,000 mls @ 70 mls/hr 07/17/22 05:10 07/19/22 02:59 Normal Saline Iv IV CONT 70 mls/hr .[id number] JUVENAL Administration Ibuprofen 800 mg in 200 mls @ 400 mls/hr 07/18/22 20:06 Caldolor 800 Mg/200 Ml IVPB Q6H PRN Pain Rated 4-6 Lactated Ringer's 1,000 mls @ 30 mls/hr 07/19/22 14:35 07/19/22 14:51 Lr - Lactated Ringers Iv IV CONT 30 mls/hr .Q24H JUVENAL Infusion Lactated Ringer's 1,000 mls @ 30 mls/hr 07/19/22 15:20 Lr - Lactated Ringers Iv IV CONT .Q24H JUVENAL Lactated Ringer's 1,000 mls @ 30 mls/hr 07/19/22 15:00 Lr - Lactated Ringers Iv IV CONT .Q24H JUVENAL Morphine Sulfate 2 mg 07/17/22 09:08 07/18/22 08:09 Morphine Sulfate (*Crx) 2 Mg/Ml Inj IV PUSH 2 mg Q2H PRN Administration Pain Rated 7-10 Ondansetron HCl 4 mg 07/16/22 20:48 07/18/22 08:09 Ondansetron Inj 4 Mg/2 Ml Vial IV PUSH 4 mg Q4H PRN Administration Nausea Ondansetron HCl 4 mg 07/19/22 15:20 Ondansetron Inj 4 Mg/2 Ml Vial IV PUSH ONCE PRN Nausea Ondansetron HCl 4 mg 07/19/22 14:57 Ondansetron Inj 4 Mg/2 Ml Vial IV PUSH ONCE PRN Nausea Radiology Results: ITS Impressions Abdomen/P
[2022-07-19] MEDS: CHLORHEXIDINE GLUCONATE 4% SOL 120 ML BTL 1 APPLIC TOPICAL (12:50)
--- NOTE | 2022-07-19 13:06 | WPDANESPN ---
Anes - Prog Note Post-Op Date/Time: 07/19/22 13:06 Vital Signs: Last Vital Signs Temp 36.1 C L 07/19/22 06:00 Pulse 66 07/19/22 06:00 Resp 14 07/19/22 06:00 BP 128/94 H 07/19/22 06:00 Pulse Ox 99 07/19/22 06:00 O2 Del Method Room Air 07/19/22 08:00 O2 Flow Rate 4 07/18/22 12:00 Pain Score (VAS): 1, patient states sore throat I/O: Intake & Output 07/18/22 07/19/22 07/19/22 23:59 07:59 15:59 Intake Total 840 1240 Output Total 700 1800 Balance 140 -560 Laboratory Tests 07/18/22 07:44 07/19/22 06:25 07/19/22 07/19/22 06:25 06:25 Sodium 140 Potassium 3.6 Chloride 106 Carbon Dioxide 25 Anion Gap 9 BUN 6 L Creatinine 0.60 L Estim Creat Clear Calc 105 Estimated GFR > 60 Glucose 97 Calcium 8.7 Total Bilirubin 1.1 AST 129 H ALT 458 H Alkaline Phosphatase 202 H Total Protein 7.0 Albumin 4.1 Blood Type B Positive Antibody Screen Negative Patient Feedback: Patient satisfied with anesthetic care.
[2022-07-19] MEDS: LACTATED RINGERS 1,000 ML 30 ML IV CONT (13:30)
--- NOTE | 2022-07-19 13:37 | WPDANESEPPF ---
Anes - Initial Pre Proc Eval Procedure: Operation Date: 07/19/22 15:00 Proposed Procedures p Laparoscopic Cholecystectomy, Possible Open - Paxton Koenig DO Date/Time: 07/19/22 13:37 Surgeon: Daniel Whalen MD Pre Op Diagnosis: Biliary Duct Dilation,Gallstones,Elevated LFT's Patient Data Age: 47 Gender: F Height: 1.64 m Weight: 80.8 kg Last Vital Signs Temp 36.1 C L 07/19/22 06:00 Pulse 66 07/19/22 06:00 Resp 14 07/19/22 06:00 BP 128/94 H 07/19/22 06:00 Pulse Ox 99 07/19/22 06:00 O2 Del Method Room Air 07/19/22 08:00 O2 Flow Rate 4 07/18/22 12:00 Allergies Allergy/AdvReac Type Severity Reaction Status Date / Time No Known Allergies Allergy Verified 07/18/22 10:33 Home Medications Medication Instructions Recorded Confirmed Type No Home Medications 04/21/22 07/17/22 History Laboratory Tests 07/19/22 07/19/22 06:25 06:25 Sodium 140 mmol/L mmol/L (137-145) Potassium 3.6 mmol/L mmol/L (3.4-5.0) Chloride 106 mmol/L mmol/L (98-107) Carbon Dioxide 25 mmol/L mmol/L (22-30) Anion Gap 9 mmol/L mmol/L (8-16) BUN 6 mg/dL L mg/dL (7-17) Creatinine 0.60 mg/dL L mg/dL (0.7-1.0) Estim Creat Clear Calc 105 ml/min ml/min Estimated GFR > 60 (59 - ) Glucose 97 mg/dL mg/dL (65-110) Calcium 8.7 mg/dL mg/dL (8.4-10.2) Total Bilirubin 1.1 mg/dL mg/dL (0.2-1.3) AST 129 U/L H U/L (14-36) ALT 458 U/L H U/L (6-35) Alkaline Phosphatase 202 U/L H U/L (38-126) Total Protein 7.0 g/dL g/dL (6.3-8.2) Albumin 4.1 g/dL g/dL (3.5-5.1) Blood Type B Positive Antibody Screen Negative Patient hx anesthesia problems: none Family hx anesthesia problems: none Results Review: All pre-operative results and documents have been reviewed as part of the pre-operative evaluation. [facility] Past Medical History Medical History (Updated 07/18/22 @ 14:41 by Jc Whalen MD) Choledocholithiasis with acute cholecystitis Elevated liver enzymes Headache History of ectopic Nausea and vomiting in adult Overweight Smoker Upper abdominal pain Surgical History Surgical History Closed extra-articular fracture of distal end of left radius ORIF January 2020 History of reversal of tubal ligation History of tubal ligation Family History Family History Other Asthma Cerebrovascular accident Depression Diabetes mellitus Social History Social History Smoking status: Current every day smoker Tobacco type: e-cigarettes/vaping Second hand tobacco smoke exposure: No Additional smoking assessment comments: STATES HX CIGARETTS 1PK/DAY/10YRS NOW JUST USES E-CIGARETTS/VAPING Alcohol intake: never Substance use: never Substance use type: does not use Additional living arrangements comments: LIVES WITH 3 CHILDREN Additional occupation/education comments: [employer] Gender identity (if verbalized by the patient): Female Spiritual care concerns: No Anes - Eval Final PreProcedure Day of Procedure 07/19/22 13:37 Patient weight: obese Heart: regular rate and rhythm Lungs: clear to auscultation Airway: Mallampati scale class II Neurological: alert and oriented Last oral intake: >/= 8 hours ASA classification: III Emergent: no Anesthetic plan: proceed Anesthesia type and monitoring: general ETT and standard monitoring Results Review: All pre-operative results and documents have been reviewed as part of the pre-operative evaluation. Informed Consent: The patient's anesthetic plan and its attendant risks and benefits were discussed with the patient/family/POA. Questions were solicited and answers provided to the satisfaction of the
--- NOTE | 2022-07-19 14:00 | WPDHPUPDATE1 ---
History and Physical Update Update Date/Time: 07/19/22 14:00 History and Physical has been reviewed, including an updated exam of the patient. There are NO changes in the patient's condition. Risks, benefits, and alternatives have been discussed and questions answered. Patient agrees to proceed with procedure.
[2022-07-19] MEDS: ceFAZolin 2 GM/D5W 50 ML 2 GM/50 ML BAG IVPB (14:07)
[2022-07-19 14:18] LABS: Aspartate Amino Transferase 675 U/L (14-36)
[2022-07-19] MEDS: BUPIVACAINE/EPINEPHRINE 0.25% 50 ML VIAL 30 ML INFILTRATE (14:24)
--- NOTE | 2022-07-19 14:44 | W.PM.PROC2 ---
Procedure Note - Detailed Date of Procedure 07/19/22 Pre-op Diagnosis cholecystitis, choledocholithiasis Post-op Diagnosis Same Procedure Performed Laparoscopic cholecystectomy Surgeon Alexandra Salgado MD Anesthesia General Indications 47 y/o F presenting c cholecystitis, choledocholithiasis. Pt had ERCP yesterday c stone removal. Findings cholecystitis, cholelithiasis Description of Procedure The patient was taken to the operating room placed in the supine position. After adequate induction of general anesthesia, the patient was prepped and draped in normal sterile fashion. A time-out was then performed to verify the patient's identity as well as the procedure being performed. I then made a 5 mm incision in the infraumbilical region. Through this, a Veress needle was placed into the peritoneal cavity and CO2 gas was then insufflated. After adequate pneumoperitoneum was achieved, the Veress needle was removed and a 5 mm optiview trocar was placed through this incision under direct visualization. I then placed the laparoscope through this trocar site and under direct visualization placed a further 12 mm subxiphoid port as well as 2 additional 5 mm ports in the right upper abdomen. The gallbladder was then identified and was noted to be moderately inflamed, distended, and full of gallstones. I was able to place a grasper at the dome of the gallbladder and this was retracted anterior and cephalad up over the liver. A 2nd retractor was then placed at the infundibulum and retracted laterally, this allowed visualization of the triangle of [place]ot. I then was able to visualize the cystic duct in its entirety from its proximal insertion into the gallbladder, to its distal junction with the common hepatic/common bile duct junction. At this point, I carefully skeletonized the proximal cystic duct with the [place] dissector. I then clipped and transected the proximal cystic duct. Next I visualized the cystic artery. Again the artery was skeletonized, clipped, and transected. I then used the Bovie cautery to take down the peritoneal attachments of the gallbladder off the liver bed. This was somewhat difficult given the amount of inflammation in the posterior space. Once the gallbladder specimen was completely detached, an endo-pouch was placed through the 12 mm port site. I then placed the gallbladder specimen into the Endo pouch and removed the endo-pouch from the 12 mm port site. The specimen will now be sent to pathology for further review. I then copiously irrigated the right upper quadrant. Some mild oozing was noted in the liver bed and this was controlled with the bovie cautery. Hemostasis was noted in the liver bed, the clips were noted to be in good position on both the cystic duct stump and the cystic artery stump. No other pathology was noted in the right upper quadrant. I then moved the laparoscope to the subxiphoid port. No iatrogenic injury or other pathology was noted in the lower abdomen. I then closed the 12 mm trocar site under direct visualization using the Sukhdev cone and 0 Vicryl suture. At this point, the abdomen was desufflated and all ports removed. All port sites were then closed with 4.O Monocryl subcuticular sutures. Dermabond was placed on each incision. The patient tolerated the procedure well, was extubated in the operating room postoperative and will be transferred to the recovery room in stable condition Estimated Blood Loss 10 Drains No Packing No Pathology Yes Complications No immediate complications Condition Stable Disposition PACU [facility] Billing Surgery - Charge Forward: Surgery Billing
[2022-07-19] MEDS: fentaNYL CITRATE INJ (*CRX) 100 MCG/2 ML VIAL 25 MCG IV PUSH ×8 (15:09→15:58)
[2022-07-19] MEDS: HYDROmorphone HCL INJ (*CRX) 1 MG/ML SYR 0.5 MG IV PUSH (16:19)
[2022-07-19] MEDS: IBUPROFEN IV 800 MG/200 ML 800 MG/200 ML BAG 400 MG IVPB (20:47)
[2022-07-20] MEDS: IBUPROFEN IV 800 MG/200 ML 800 MG/200 ML BAG 400 MG IVPB (05:15)
[2022-07-20 06:00] VITALS: BP 143/93; PULSE 62; RESP 18; TEMP 36.4; O2SAT 100
[2022-07-20 06:57] LABS: Basophils Percent Auto 0.3 % (0.2-1.2); Eosinophils Percent Auto 0.1 % (0-4.4); Hematocrit 36.7 % (37.0-47.0); Hemoglobin 12.3 g/dL (12.0-15.0); Immature Granulocyte Absolute 0.02 K/mm3 (0.00-0.031); Immature Granulocyte Percent A 0.2 % (0-0.5); Lymphocytes Absolute Auto 1.77 K/mm3 (0.9-3.2); Lymphocytes Percent Auto 18.8 % (18.3-44.2); Mean Corpuscular HGB Conc 33.5 g/dl (32-36); Mean Corpuscular Hemoglobin 28.7 pg (26-34); Mean Corpuscular Volume 85.7 fl (80-100); Mean Platelet Volume 9.6 fl (7.4-10.4); Monocytes Absolute Auto 0.8 K/mm3 (0.1-0.6); Monocytes Percent Auto 8.4 % (2.6-8.5); Neutrophils Absolute Auto 6.8 K/mm3 (1.3-6.7); Neutrophils Percent Auto 72.2 % (45.5-73.1); Platelet Count Result 304 k/mm3 (150-375); Red Blood Count 4.28 M/mm3 (4.2-5.4); Red Cell Distribution Width 13.8 % (11.5-14.5); White Blood Count 9.4 K/mm3 (4.5-10.0)
[2022-07-20 07:24] LABS: Alanine Aminotransferase 418 U/L (6-35); Albumin Level 3.8 g/dL (3.5-5.1); Alkaline Phosphatase 178 U/L (38-126); Anion Gap 10 mmol/L (8-16); Aspartate Amino Transferase 192 U/L (14-36); Bilirubin,Total 0.8 mg/dL (0.2-1.3); Blood Urea Nitrogen 6 mg/dL (7-17); Calcium 8.5 mg/dL (8.4-10.2); Carbon Dioxide 24 mmol/L (22-30); Chloride 105 mmol/L (98-107); Estimated CRCL calculation 105 ml/min; Estimated Glomerular Filt Rate > 60; Glucose 87 mg/dL (65-110); Potassium 3.4 mmol/L (3.4-5.0); Sodium 139 mmol/L (137-145)
--- NOTE | 2022-07-20 07:35 | WPDANESPN ---
Anes - Prog Note Post-Op Date/Time: 07/20/22 07:35 Vital Signs: Last Vital Signs Temp 36.4 C 07/20/22 06:00 Pulse 62 07/20/22 06:00 Resp 18 07/20/22 06:00 BP 143/93 H 07/20/22 06:00 Pulse Ox 100 07/20/22 06:00 O2 Del Method Room Air 07/19/22 20:00 O2 Flow Rate 6 07/19/22 15:05 Pain Score (VAS): 0 I/O: Intake & Output 07/19/22 07/19/22 07/20/22 15:59 23:59 07:59 Intake Total 50 1890 500 Output Total 1800 Balance 50 1890 -1300 Laboratory Tests 07/20/22 06:11 07/20/22 06:11 07/16/22 07/19/22 07/20/22 17:31 06:25 06:11 WBC 9.4 RBC 4.28 Hgb 12.3 Hct 36.7 L MCV 85.7 MCH 28.7 MCHC 33.5 RDW 13.8 Plt Count 304 MPV 9.6 Immature Gran % (Auto) 0.2 Neut % (Auto) 72.2 Lymph % (Auto) 18.8 [place] % (Auto) 8.4 Eos % (Auto) 0.1 Baso % (Auto) 0.3 Lymph # (Auto) 1.77 [place] # (Auto) 0.8 H Eos # (Auto) 0.0 Baso # (Auto) 0.0 Abs Immat Gran (auto) 0.02 Absolute Neuts (auto) 6.8 H Absolute Nucleated RBC 0.0 Nucleated RBC % 0.0 Sodium Potassium Chloride Carbon Dioxide Anion Gap BUN Creatinine Estim Creat Clear Calc Estimated GFR Glucose Calcium Total Bilirubin AST 675 H ALT Alkaline Phosphatase Total Protein Albumin Blood Type B Positive Antibody Screen Negative 07/20/22 06:11 WBC RBC Hgb Hct MCV MCH MCHC RDW Plt Count MPV Immature Gran % (Auto) Neut % (Auto) Lymph % (Auto) [place] % (Auto) Eos % (Auto) Baso % (Auto) Lymph # (Auto) [place] # (Auto) Eos # (Auto) Baso # (Auto) Abs Immat Gran (auto) Absolute Neuts (auto) Absolute Nucleated RBC Nucleated RBC % Sodium 139 Potassium 3.4 Chloride 105 Carbon Dioxide 24 Anion Gap 10 BUN 6 L Creatinine 0.60 L Estim Creat Clear Calc 105 Estimated GFR > 60 Glucose 87 Calcium 8.5 Total Bilirubin 0.8 AST 192 H ALT 418 H Alkaline Phosphatase 178 H Total Protein 7.0 Albumin 3.8 Blood Type Antibody Screen Patient Feedback: Patient satisfied with anesthetic care.
--- NOTE | 2022-07-20 08:34 | PM.PNGS ---
Progress Note: A&P Assessment and Plan (1) Choledocholithiasis with acute cholecystitis: Code(s): K80.42 - Calculus of bile duct with acute cholecystitis without obstruction Status: Acute Assessment and Plan: doing well s/p cholecystectomy, ok to dc from surgical standpoint, routine postop care, f/u 2 wks Subjective Subjective Date/Time Seen: 07/20/22 08:34 feels good this am, wants to go home, alva diet Review of Systems Review of Systems: All systems reviewed & are unremarkable except as noted in HPI and below Exam Const: General: cooperative, comfortable and no acute distress Resp: Auscultation: clear to auscultation bilaterally Cardio: Rate: regular rate Rhythm: regular rhythm GI: Inspection: normal to inspection, distended and incision GI Palp: Yes abdominal tenderness and Yes Soft to palpation Objective Data Vital Signs Vital Signs: Vital Signs - 24 hr 07/19/22 14:51 07/19/22 15:05 07/19/22 15:20 Temperature Pulse Rate 75 55 L 56 L Respiratory Rate 24 H 18 12 Blood Pressure 136/69 146/77 H 150/89 H Pulse Oximetry 97 100 100 Oxygen Delivery Simple Face Mask Simple Face Mask Room Air Oxygen Flow Rate 6 6 07/19/22 15:35 07/19/22 15:50 07/19/22 16:05 Temperature Pulse Rate 60 55 L 55 L Respiratory Rate 15 16 20 Blood Pressure 153/83 H 139/70 143/81 H Pulse Oximetry 99 95 96 Oxygen Delivery Room Air Room Air Room Air Oxygen Flow Rate 07/19/22 16:20 07/19/22 17:57 07/19/22 22:00 Temperature 36.4 C 36.2 C L Pulse Rate 54 L 57 L 60 Respiratory Rate 18 16 18 Blood Pressure 140/77 138/82 133/79 Pulse Oximetry 97 100 100 Oxygen Delivery Room Air Oxygen Flow Rate 07/19/22 20:00 07/20/22 06:00 Temperature 36.4 C Pulse Rate 60 62 Respiratory Rate 18 18 Blood Pressure 143/93 H Pulse Oximetry 100 100 Oxygen Delivery Room Air Oxygen Flow Rate Intake/Output Intake/Output: Intake & Output 07/17/22 07/18/22 07/19/22 07/20/22 23:59 23:59 23:59 23:59 Intake Total 1480 3440 3180 500 Output Total 1600 3700 1800 1800 Balance -120 -260 1380 -1300 Meds/Results Medications: Active Medications Generic Name Dose Route Start Last Admin Trade Name Freq PRN Reason Stop Dose Admin Hydrocodone Bitart/Acetaminophen 1 tab 07/19/22 16:30 Hydrocodone/Acetaminophen (*Crx) 5-325 Mg Tablet PO Q4H PRN Pain Rated 4-6 Famotidine 20 mg 07/20/22 09:00 Famotidine 20 Mg Tablet PO Q12HR JUVENAL Ibuprofen 800 mg in 200 mls @ 400 mls/hr 07/18/22 20:06 07/20/22 07:01 Caldolor 800 Mg/200 Ml IVPB Infused Q6H PRN Infusion Pain Rated 4-6 Morphine Sulfate 2 mg 07/17/22 09:08 07/18/22 08:09 Morphine Sulfate (*Crx) 2 Mg/Ml Inj IV PUSH 2 mg Q2H PRN Administration Pain Rated 7-10 Ondansetron HCl 4 mg 07/16/22 20:48 07/18/22 08:09 Ondansetron Inj 4 Mg/2 Ml Vial IV PUSH 4 mg Q4H PRN Administration Nausea Radiology Results: ITS Impressions Abdomen/Pelvis CT 07/16/22 20:14 IMPRESSION: 1. Mild intrahepatic and extrahepatic biliary duct dilatation. Consider MRCP. 2. Distended gallbladder with gallstones. MRCP 07/17/22 13:19 IMPRESSION: 1. 2 mm stone of the distal common bile duct with mild dilation common bile duct. 2. Distended gallbladder containing multiple stones. Labs Labs: Laboratory Results - last 24 hr 07/16/22 07/20/22 07/20/22 17:31 06:11 06:11 WBC 9.4 RBC 4.28 Hgb 12.3 Hct 36.7 L MCV 85.7 MCH 28.7 MCHC 33.5 RDW 13.8 Plt Count 304 MPV 9.6 Immature Gran % (Auto) 0.2 Neut % (Auto) 72.2 Lymph % (Auto) 18.8 [place] % (Auto) 8.4 Eos % (Auto) 0.1 Baso % (Auto) 0.3 Lymph # (Auto) 1.77 [place] # (Auto) 0.8 H Eos # (Auto) 0.0 Baso # (Auto) 0.0 Abs Immat Gran (auto) 0.02 Absolute Neuts (auto) 6.8 H Absolute Nucleated RBC 0.0 Nucleated RBC % 0.0 Sodium 139 Potassium 3.4 Chlor
[2022-07-20] MEDS: FAMOTIDINE 20 MG TABLET PO (08:46)
[2022-07-20] MEDS: HYDROcodone/acetaminophen (*CRX) 5-325 MG TABLET 1 TAB PO (12:42)
[2022-07-20 14:00] VITALS: BP 114/74; PULSE 83; RESP 20; TEMP 36.6; O2SAT 98
--- NOTE | 2022-07-20 14:30 | PM.DS ---
DS: Admitting Diagnosis Discharge Date 07/20/22 Admitting Diagnosis Nausea and vomiting DS: Discharge Diagnosis Discharge Diagnosis (1) Gallstones: Code(s): K80.20 - Calculus of gallbladder without cholecystitis without obstruction Status: Acute (2) Elevated LFTs: Code(s): R79.89 - Other specified abnormal findings of blood chemistry Status: Acute (3) Duodenitis: Code(s): K29.80 - Duodenitis without bleeding Status: Acute (4) Current every day nicotine vaping: Code(s): Z72.0 - Tobacco use Status: Acute (5) Obesity (BMI 30-39.9): Code(s): E66.9 - Obesity, unspecified Status: Acute (6) Dilated bile duct: Code(s): K83.8 - Other specified diseases of biliary tract Status: Acute DS: Summary Hospital Course Reason for hospitalization: 47yo female here for abdominal pain and fund to have elevated LFTs from choledocholithiasis. Please see H&P for details. Hospital Course: Patient presents with abdominal pain and found to have elevated liver enzymes. Lipase was normal. CT scan showed biliary duct dilatation with distended gallbladder with gallstones. MRCP showed a 2 mm stone in the distal common bile duct. EGD with ERCP showed mild duodenitis which could explain some of her pain. ERCP did not find any filling defects. Patient probably passed a gallstone. Liver enzymes trended down overall. General surgery was consulted and patient underwent cholecystectomy 07/19/22. She toelrated the procedure well. She is eager for discahrge. She overall did well and was able to be discharged home on 07/20/22. Status at Discharge Cognitive/behavioral status at discharge: Stable Time Spent with Patient Time attestation: Total time spent providing and/or coordinating discharge services: 32 minutes Time spent: Greater than 30 minutes Exam Narrative: AF 97.8 114/74 83 20 98% ra Gen - NARD Chest - CTA bilaterally, nml RR CV - RRR S1/S2 Abd -soft. NT. +BS. Incisions are clean/dry/intact Ext - No pedal edema Neuro - Alert and oriented. Nonfocal exam. Psych - Nml mood and affect Skin - Warm and dry DS: Data Data Completed and Pending Pending studies at discharge: Pending at discharge 07/19/22 14:12 Surgical [PTH] Routine Labs on day of discharge: Labs from last 24 hours 07/20/22 07/20/22 06:11 06:11 WBC 9.4 RBC 4.28 Hgb 12.3 Hct 36.7 L MCV 85.7 MCH 28.7 MCHC 33.5 RDW 13.8 Plt Count 304 MPV 9.6 Immature Gran % (Auto) 0.2 Neut % (Auto) 72.2 Lymph % (Auto) 18.8 [place] % (Auto) 8.4 Eos % (Auto) 0.1 Baso % (Auto) 0.3 Lymph # (Auto) 1.77 [place] # (Auto) 0.8 H Eos # (Auto) 0.0 Baso # (Auto) 0.0 Abs Immat Gran (auto) 0.02 Absolute Neuts (auto) 6.8 H Absolute Nucleated RBC 0.0 Nucleated RBC % 0.0 Sodium 139 Potassium 3.4 Chloride 105 Carbon Dioxide 24 Anion Gap 10 BUN 6 L Creatinine 0.60 L Estim Creat Clear Calc 105 Estimated GFR > 60 Glucose 87 Calcium 8.5 Total Bilirubin 0.8 AST 192 H ALT 418 H Alkaline Phosphatase 178 H Total Protein 7.0 Albumin 3.8 Discharge Plan Discharge Attending physician on discharge: Jc Whalen Consulting providers: Kalyn Dhaliwal ; Urbano Michel ; Paxton Koenig Discharging Clinician: Jc Whalen Anticipated Discharge Date/Time: 07/20/22 14:34 Patient Disposition: Home, Self-Care Activity: as tolerated Diet: low fat Discharge Instructions: DISCHARGE INSTRUCTION SHEET FOR HERNIA, GALLBLADDER AND APPENDIX SURGERIES DR. PINK PATIENT TO TAKE HOME 1. May shower in 24 hours, no soaking in bath x 2weeks. 2. Call office for: Wound increasingly painful or bleeding Vomiting Fever of greater than 101 degrees 3. If no bowel movement for three days, take 1 oz. (30 ml) Milk of Magnesia or MiraLax 17g 1 to 2 times daily. 4. No heavy
== END 2022-07-20 16:56 | disposition home or self-care (01) | DRG 419 ==
LOC: ANHED 20:56 → ANH3MEDSUR 22:40
PROVIDERS: Emergency Medicine; Hospitalist; Internal Medicine Gastroenterology; Nurse Practitioner Family; Physician Assistant; Surgery; Admitting Provider Internal Medicine; Emergency Provider Emergency Medicine; PCP Physician Assistant; Visit Provider Internal Medicine
PROC: 0F798ZZ Dilation of Common Bile Duct, Via Natural or Artificial Opening Endoscopic (ICD-10-PCS; CPT 43260; principal; 2022-07-18 12:00)
PROC: 0FT44ZZ Resection of Gallbladder, Percutaneous Endoscopic Approach (ICD-10-PCS; CPT 47562; principal; 2022-07-19 15:00)
DX: K80.00 Calculus of gallbladder with acute cholecystitis without obstruction (principal); K29.80 Duodenitis without bleeding; E66.9 Obesity, unspecified; Z68.30 Body mass index [BMI] 30.0-30.9, adult; F17.290 Nicotine dependence, other tobacco product, uncomplicated; Z20.822 Contact with and (suspected) exposure to COVID-19
CPT/HCPCS: 36415; 74177; 74183; 74329; 76376; 80048; 80053; 80076; 81001; 81025; 82248; 83690; 85025; 85027; 86850; 86900; 86901; 88304; 96361; 96365; 96374; 96375; 96376; 99285; A9270; A9577; C9803; G0378; J0131; J0690; J1100; J1170; J1741; J2250; J2270; J2405; J2704; J2710; J3010; J7030; J7120; Q9967; U0003; U0005

== ENCOUNTER 2022-08-01 10:22 | Outpatient (CLI) | payer BC, SELFPAY ==
--- NOTE | ~2022-08-01 | XR_ITS ---
XR knee RT 3V DATE: 08/01/2022 11:05 INDICATION: Bilateral knee joint pain TECHNIQUE: AP, lateral and sunrise views COMPARISON: None FINDINGS: There is mild periarticular spurring of the patellofemoral and medial compartments and mild loss of height of medial compartment joint space, consistent with mild osteoarthritis. No fracture or dislocation or joint effusion. No radiopaque intra-articular loose body or chondrocalc inosis. No periosteal reaction or bone destruction. IMPRESSION: Mild osteophyte is involving the medial and patellofemoral compartments Reviewed, dictated and finalized at location B. IMPRESSION: Mild osteophyte is involving the medial and patellofemoral compartm ents
--- NOTE | ~2022-08-01 | XR_ITS ---
XR foot RT min 3V DATE: 08/01/2022 11:05 INDICATION: Bilateral foot pain TECHNIQUE: 4 views COMPARISON: None FINDINGS: Relatively short third and fourth metatarsal bones. Mild osteoarthritis at the first metatarsophalangeal joint. Slight plantar calcaneal enthesopathy. No fracture or dislocation, periosteal reaction or bone destruction. No erosive change. IMPRESSION: Mild osteoarthritis at first metatarsophalangeal joint Slight plantar calcaneal enthesopathy. Reviewed, dictated and finalized at location B.
--- NOTE | ~2022-08-01 | XR_ITS ---
XR foot LT min 3V DATE: 08/01/2022 11:05 INDICATION: Bilateral foot pain TECHNIQUE: 4 views COMPARISON: None FINDINGS: Moderate plantar calcaneal enthesopathy. No erosive change or periostitis. Mild osteoarthritis at the first metatarsophalangeal joint. Short fourth metatarsal bone. No fracture, dislocation, periosteal reaction or bone destruction. IMPRESSION: Mild first metatarsal phalangeal osteoarthritis Moderate plantar calcaneal enthesopathy Reviewed, dictated and finalized at location B.
--- NOTE | ~2022-08-01 | XR_ITS ---
XR knee LT 3V DATE: 08/01/2022 11:05 INDICATION: Bilateral knee pain TECHNIQUE: [place], AP and lateral views COMPARISON: None FINDINGS: There is periarticular spurring at all 3 compartments, mild loss of height at the lateral c ompartment joint space. No fracture or dislocation or joint effusion. No radiopaque intra-articular loose body or chondrocalc inosis. No periosteal reaction or bone destruction. IMPRESSION: Mild tricompartment osteoarthritis Reviewed, dictated and finalized at location B.
--- NOTE | ~2022-08-01 | XR_ITS ---
XR lumbar spine 2-3V DATE: 08/01/2022 11:05 INDICATION: Chronic low back pain. TECHNIQUE: AP, lateral, coned lateral lumbosacral views COMPARISON: None FINDINGS: Normal alignment of the lumbar spine. There is minimal degenerative spurring and loss of he ight at L1 to disc space consistent with mild degenerative disc disease. Remaining lumbar and lumbosa cral interspaces are well preserved. No fracture or bone destruction or spondylolisthesis. The included lower thoracic and lumbar pedicles are intact. The sacroiliac joints are normal. Status post cholecystectomy. IMPRESSION: Mild degenerative disc disease at L1-2 Status post cholecystectomy Reviewed, dictated and finalized at location B.
== END 2022-08-01 10:23 | disposition home or self-care (01) ==
PROVIDERS: PCP Physician Assistant; Visit Provider Physician Assistant
DX: M17.12 Unilateral primary osteoarthritis, left knee (principal); M51.36 Other intervertebral disc degeneration, lumbar region; M19.072 Primary osteoarthritis, left ankle and foot; M77.32 Calcaneal spur, left foot; M19.071 Primary osteoarthritis, right ankle and foot; M77.31 Calcaneal spur, right foot
CPT/HCPCS: 72100; 73562; 73630

== ENCOUNTER 2023-08-19 17:18 | Emergency (ER) | payer BC, SELFPAY ==
[2023-08-19 17:36] VITALS: BP 130/87; PULSE 70; RESP 20; TEMP 36.7; O2SAT 100
--- NOTE | 2023-08-19 17:41 | ED.WOUNDLAC ---
HPI - Wound/Laceration General Chief Complaint: Extremity Injury, Upper Stated Complaint: injured finger right hand Time Seen by Provider: 08/19/23 17:35 Source: patient Mode of arrival: ambulatory Limitations: no limitations History of Present Illness HPI narrative: Natalie is a 48-year-old female patient presenting to the clinic today with complaints of a laceration to the tip of her right index finger. She reports that this occurred about 9:00 last night. Bleeding is controlled. States she is concerned that she may need stitches. Tetanus shot is not up-to-date. Related Data Allergies Allergy/AdvReac Type Severity Reaction Status Date / Time No Known Allergies Allergy Verified 08/19/23 17:45 Review of Systems Review of Systems: Pertinent positives per HPI. Patient denies any fever, chills, rash, headache, visual changes, dizziness, cough, runny nose, sore throat, shortness of breath, chest pain, palpitations, nausea, vomiting, diarrhea, constipation, abdominal pain, or any urinary issues. PMFSH Past Medical History Medical History Choledocholithiasis with acute cholecystitis Elevated liver enzymes Headache History of ectopic Nausea and vomiting in adult Overweight Smoker Upper abdominal pain Surgical History Surgical History Closed extra-articular fracture of distal end of left radius ORIF January 2020 History of reversal of tubal ligation History of tubal ligation Family History Family History Other Asthma Cerebrovascular accident Depression Diabetes mellitus Social History Social History Smoking status: Current every day smoker Tobacco type: e-cigarettes/vaping Second hand tobacco smoke exposure: No Additional smoking assessment comments: STATES HX CIGARETTS 1PK/DAY/10YRS NOW JUST USES E-CIGARETTS/VAPING Alcohol intake: never Substance use: never Substance use type: does not use Living arrangements: with family Additional living arrangements comments: LIVES WITH 3 CHILDREN Occupation/Education: occupation Additional occupation/education comments: [employer] Gender identity (if verbalized by the patient): Female Spiritual care concerns: No Comments At the time of my signature, I reviewed and agree with the nursing past medical, surgical, social, and family history. There is no relevant family history pertinent to the patient complaint. Exam Narrative: General: Well-developed, well nourished, in no apparent distress Head: Normocephalic, atraumatic. Cardio: Regular rate and rhythm, s1 and s2 normal, no murmur appreciated. Resp: Clear to auscultation bilaterally, no rhonchi, rales, wheezing or rubs. Integumentary: [place], warm, and dry, intact without lesion, 1 cm mild gaping laceration to the distal finger tip of the right index finger not involving the nail. No redness, swelling, or discharge noted Course Course Emergency Course: Portions of this record may have been created with voice recognition software. Level of Care: Express Care Visit Vital Signs Vital signs: Vital Signs Temperature 36.7 C 08/19/23 17:36 Pulse Rate 70 08/19/23 17:36 Respiratory Rate 20 08/19/23 17:36 Blood Pressure 130/87 08/19/23 17:36 Pulse Oximetry 100 08/19/23 17:36 Oxygen Delivery Room Air 08/19/23 17:36 Temperature 36.7 C 08/19/23 17:36 Pulse Rate 70 08/19/23 17:36 Respiratory Rate 20 08/19/23 17:36 Blood Pressure 130/87 08/19/23 17:36 Pulse Oximetry 100 08/19/23 17:36 Oxygen Delivery Room Air 08/19/23 17:36 Vital signs reviewed Procedures Laceration Laceration 1: Date: 08/19/23 Site: hand (Right index finger) Side (If applicable): right Size (cm): 1
[2023-08-19] MEDS: TETANUS,DIPHTHERIA,AC PERTUSSIS ADULT (0.5 ML) BOOSTRIX IM (17:57)
== END 2023-08-19 18:09 | disposition home or self-care (01) ==
PROVIDERS: Emergency Provider Nurse Practitioner Family; PCP Physician Assistant
DX: S61.210A Laceration without foreign body of right index finger without damage to nail, initial encounter (principal); X58.XXXA Exposure to other specified factors, initial encounter; Z23 Encounter for immunization; F17.290 Nicotine dependence, other tobacco product, uncomplicated
CPT/HCPCS: 90471; 90715; 99213; G0463

== ENCOUNTER 2023-10-18 16:52 | Emergency (ER) | payer BC, SELFPAY ==
[2023-10-18 17:00] VITALS: BP 127/87; PULSE 107; RESP 16; TEMP 37; O2SAT 100
--- NOTE | 2023-10-18 17:29 | ED.GENADULT ---
HPI - General Adult General Chief complaint: Upper Respiratory Infection Stated complaint: runny nose, body aches Time Seen by Provider: 10/18/23 17:29 Source: patient, RN notes reviewed and old records reviewed Mode of arrival: ambulatory Limitations: no limitations History of Present Illness HPI narrative: 48-year-old female presents to the [facility] with complaints of a runny nose and body aches that started 2-3 days ago. Patient reports taking Benadryl with some relief. Patient denies any fevers, chest pain, abdominal pain. Denies any coughing. Requesting testing for flu, COVID, strep. Onset (ago): day(s) (2-3) Related Data Home Medications Medication Instructions Recorded Confirmed No Home Medications 10/18/23 10/18/23 Allergies Allergy/AdvReac Type Severity Reaction Status Date / Time No Known Allergies Allergy Verified 10/18/23 16:58 Review of Systems Review of Systems: All systems reviewed & are unremarkable except as noted in HPI and below Constitutional: Constitutional: Reports as per HPI and Reports body ache(s) Eyes: Eyes: Reports no additional eye complaints ENT: Reports as per HPI and Reports nasal congestion Cardiovascular: Cardiovascular: Reports no additional cardiovascular complaints, Denies chest pain and Denies dyspnea Respiratory: Respiratory: Reports no additional respiratory complaints, Denies chest congestion, Denies cough and Denies dyspnea Gastrointestinal: Gastrointestinal: Reports no additional gastrointestinal complaints, Denies abdominal pain, Denies nausea and Denies vomiting Musculoskeletal: Musculoskeletal: Reports no additional musculoskeletal complaints Integumentary/Breasts: Skin/Breast: Reports system reviewed and no additional complaints, except as docu Neurologic: Reports system reviewed and no additional complaints, except as documented Psychiatric: Psychiatric: Reports no additional psychiatric complaints Allergic/Immunologic: Allergic/Immunologic: Reports no additional allergic/immunologic complaints [facility] Past Medical History Medical History Choledocholithiasis with acute cholecystitis Elevated liver enzymes Headache History of ectopic Nausea and vomiting in adult Overweight Smoker Upper abdominal pain Surgical History Surgical History Closed extra-articular fracture of distal end of left radius ORIF January 2020 History of reversal of tubal ligation History of tubal ligation Family History Family History Other Asthma Cerebrovascular accident Depression Diabetes mellitus Social History Social History Smoking status: Current every day smoker Tobacco type: e-cigarettes/vaping Second hand tobacco smoke exposure: No Additional smoking assessment comments: STATES HX CIGARETTS 1PK/DAY/10YRS NOW JUST USES E-CIGARETTS/VAPING Alcohol intake: never Substance use: never Substance use type: does not use Living arrangements: with family Additional living arrangements comments: LIVES WITH 3 CHILDREN Occupation/Education: occupation Additional occupation/education comments: [employer] Gender identity (if verbalized by the patient): Female Spiritual care concerns: No Comments At the time of my signature, I reviewed and agree with the nursing past medical, surgical, social, and family history. There is no relevant family history pertinent to the patient complaint. Exam Const: General: cooperative, healthy appearing, comfortable, no acute distress, well developed, alert and well nourished Nutritional Appearance: well nourished Orientation/consciousness: patient oriented x3 Limitations: no limitations HENMT: Head: normal to inspection Ears: hearing grossly normal bilaterally, external ears normal,
== END 2023-10-18 17:39 | disposition home or self-care (01) ==
PROVIDERS: Emergency Provider Nurse Practitioner; PCP Physician Assistant
DX: J06.9 Acute upper respiratory infection, unspecified (principal); Z20.822 Contact with and (suspected) exposure to COVID-19; F17.290 Nicotine dependence, other tobacco product, uncomplicated
CPT/HCPCS: 87081; 87426; 87804; 87880; 99213; C9803; G0463